=== PATIENT | male | born 1950 | race Caucasian/White ===

== ENCOUNTER → 2017-12-20 07:00 | Outpatient (CLI) | payer MEDICARE, SELFPAY ==
[2017-12-20 10:45] LABS: AST(SGOT) 26 U/L (15-37); Alanine Aminotransfer ALT/SGPT 24 U/L (16-61); Albumin, Serum 3.9 g/dL (3.2-5.0); Alkaline Phosphatase 83 U/L (45-117); Bilirubin, Direct 0.13 mg/dL (0.00-0.30); Cholesterol 146 mg/dL (200); Globulin 3.4 g/dL (2.2-4.2); High Density Lipoprotein 46 mg/dL; Protein, Total 7.3 g/dL (6.4-8.2); Triglycerides 87 mg/dL; Very Low Density Lipoprotein 17 mg/dL (5-40)
== END ==
PROVIDERS: Family Provider Nurse Practitioner; PCP Nurse Practitioner; Visit Provider Internal Medicine Cardiovascular Disease
DX: E78.5 Hyperlipidemia, unspecified (principal); Z79.899 Other long term (current) drug therapy
CPT/HCPCS: 36415; 80061; 80076

== ENCOUNTER → 2018-11-03 08:00 | Outpatient (CLI) | payer MEDICARE, SELFPAY ==
[2018-01-05 12:58] VITALS: BMI 28.8
[2018-11-03 10:26] LABS: AST(SGOT) 30 U/L (15-37); Alanine Aminotransfer ALT/SGPT 25 U/L (16-61); Albumin, Serum 3.8 g/dL (3.2-5.0); Alkaline Phosphatase 90 U/L (45-117); Bilirubin, Direct 0.16 mg/dL (0.00-0.30); Cholesterol 142 mg/dL (200); Globulin 3.4 g/dL (2.2-4.2); High Density Lipoprotein 48 mg/dL; Protein, Total 7.2 g/dL (6.4-8.2); Triglycerides 81 mg/dL; Very Low Density Lipoprotein 16 mg/dL (5-40)
== END ==
PROVIDERS: Family Provider Nurse Practitioner; PCP Nurse Practitioner; Referring Provider Internal Medicine Cardiovascular Disease; Visit Provider Internal Medicine Cardiovascular Disease
DX: E78.5 Hyperlipidemia, unspecified (principal)
CPT/HCPCS: 36415; 80061; 80076

== ENCOUNTER → 2019-02-23 14:41 | Outpatient (CLI) | payer MEDICARE, SELFPAY ==
[2019-01-26 08:34] VITALS: BMI 29.1
--- NOTE | 2019-02-23 14:45 | ECHOCS_ITS ---
Reason For Study: MVP Procedure This was a 2D Doppler, Color Flow transthoracic echocardiogram. The study was technically difficult. Contrast injection was performed. Exam performed in department. Left Ventricle Normal LV size. Left ventricular systolic function is normal. The estimated ejection fraction is 60 %. Diastolic function is indeterminate. No regional wall motion abnormalities noted. Right Ventricle Normal RV size. Normal systolic function. Atria The left atrium is mildly enlarged. Normal right atrium. No doppler evidence for ASD. Mitral Valve There is no mitral annular calcification. Mild to moderate mitral valve prolapse. Moderate (2+) mitral valve insufficiency. Tricuspid Valve Normal tricuspid valve. Mild tricuspid valve insufficiency. Right ventricular systolic pressure estimated to be 23 mmHg. Aortic Valve Trisinus/trileaflet aortic valve. Normal aortic valve. Pulmonic Valve The pulmonic valve is not well visualized. Great Vessels Borderline to mildly dilated aortic root. Pericardium/Pleural No pericardial effusion. Medication 22 gauge I.V. with prn adaptor inserted into right arm. Diluted definity 4ml given slow IV push to enhance endocardial definition. MMode/2D Measurements & Calculations LVIDd: 4.3 cm IVSd: 1.0 cm Ao root diam: 3.8 cm LVIDs: 2.7 cm LVPWd: 0.85 cm RVDd: 3.6 cm FS: 37.0 % LAV(MOD-bp): 84.1 ml EDV(MOD-sp4): 150.7 ml EDV(MOD-sp2): 96.8 ml LAV(MOD-bp) Indexed: 37.2 ml/m2 ESV(MOD-sp4): 50.0 ml EF(MOD-sp2): 54.1 % LAV(MOD-sp2): 108.6 ml EF(MOD-sp4): 66.8 % LAV(MOD-sp4): 65.3 ml SV(MOD-sp4): 100.6 ml SV(MOD-sp2): 52.3 ml LA A4 area: 21.7 cm2 LA dimension(2D): 4.3 cm RA A4 area: 16.3 cm2 Time Measurements MV dec time: 0.24 sec Doppler Measurements & Calculations MV E max tomi: 44.2 cm/sec Lat Peak E' Tomi: 8.3 cm/sec Med Peak E' Tomi: 4.7 cm/sec MV A max tomi: 43.3 cm/sec E/E' lat: 5.4 E/E' med: 9.4 MV E/A: 1.0 Ao V2 max: 99.3 cm/sec LV V1 max: 82.9 cm/sec TR max tomi: 223.5 cm/sec Ao max P.9 mmHg LV V1 max P.8 mmHg TR max P.1 mmHg Interpretation Summary The study was technically difficult. Contrast injection was performed. Left ventricular systolic function is normal. The estimated ejection fraction is 60 %. The left atrium is mildly enlarged. Mild to moderate mitral valve prolapse. Moderate (2+) mitral valve insufficiency. Mild tricuspid valve insufficiency. Borderline to mildly dilated aortic root. Right ventricular systolic pressure estimated to be 23 mmHg. Diastolic function is indeterminate. Ordering Physician: Rolan Baez Referring Physician: ADRIANNA LA Performed By: Shelbie Crocker, SRAVAN, RVT
== END ==
PROVIDERS: Family Provider Nurse Practitioner; PCP Nurse Practitioner; Referring Provider Internal Medicine Cardiovascular Disease; Visit Provider Internal Medicine Cardiovascular Disease
DX: I34.0 Nonrheumatic mitral (valve) insufficiency (principal)
CPT/HCPCS: 93306; Q9957; A4216; C8929

== ENCOUNTER → 2020-04-14 08:10 | Outpatient (CLI) | payer MEDICARE, SELFPAY ==
[2020-03-21 15:26] VITALS: BMI 28.6
[2020-04-14 10:10] LABS: AST(SGOT) 25 U/L (15-37); Alanine Aminotransfer ALT/SGPT 24 U/L (16-61); Albumin, Serum 3.9 g/dL (3.2-5.0); Alkaline Phosphatase 89 U/L (45-117); Bilirubin, Direct 0.14 mg/dL (0.00-0.30); Cholesterol 167 mg/dL (200); Globulin 3.6 g/dL (2.2-4.2); High Density Lipoprotein 51 mg/dL; Protein, Total 7.5 g/dL (6.4-8.2); Triglycerides 93 mg/dL; Very Low Density Lipoprotein 19 mg/dL (5-40)
[2020-04-14 10:16] LABS: PSA,Total - Annual Screen 1.35 ng/mL (0.00-4.00)
== END ==
PROVIDERS: Internal Medicine Cardiovascular Disease; PCP Nurse Practitioner; Referring Provider Nurse Practitioner; Visit Provider Nurse Practitioner
DX: Z12.5 Encounter for screening for malignant neoplasm of prostate (principal); E78.00 Pure hypercholesterolemia, unspecified; E78.5 Hyperlipidemia, unspecified
CPT/HCPCS: 36415; 80061; 80076; 84153; G0103

== ENCOUNTER → 2021-03-23 08:09 | Outpatient (CLI) | payer MEDICARE, SELFPAY ==
[2021-03-20 11:08] VITALS: BMI 28.6
[2021-03-23 10:51] LABS: AST(SGOT) 28 U/L (15-37); Alanine Aminotransfer ALT/SGPT 28 U/L (16-61); Albumin, Serum 3.8 g/dL (3.2-5.0); Alkaline Phosphatase 95 U/L (45-117); Bilirubin, Direct 0.13 mg/dL (0.00-0.30); Cholesterol 164 mg/dL (200); Globulin 3.4 g/dL (2.2-4.2); High Density Lipoprotein 52 mg/dL; Protein, Total 7.2 g/dL (6.4-8.2); Triglycerides 101 mg/dL; Very Low Density Lipoprotein 20 mg/dL (5-40)
== END ==
PROVIDERS: PCP Nurse Practitioner; Referring Provider Internal Medicine Cardiovascular Disease; Visit Provider Internal Medicine Cardiovascular Disease
DX: E78.00 Pure hypercholesterolemia, unspecified (principal)
CPT/HCPCS: 36415; 80061; 80076

== ENCOUNTER → 2022-04-05 | Outpatient (CLI) | payer MEDICARE, SELFPAY ==
--- NOTE | 2022-04-05 12:41 | ECHOCS_ITS ---
Reason For Study: Ao Root Dilatation Procedure This was a 2D Doppler, Color Flow transthoracic echocardiogram. The study was technically difficult. Contrast injection was performed. Exam performed in department. Left Ventricle Normal LV size. Left ventricular systolic function is normal. The estimated ejection fraction is 65 %. No evidence for diastolic dysfunction. No regional wall motion abnormalities noted. Right Ventricle Normal RV size. Normal systolic function. Atria The left atrium is mildly enlarged. Normal right atrium. No doppler evidence for ASD. Mitral Valve There is no mitral annular calcification. Mild to moderate mitral valve prolapse. Moderate (2+) mitral valve insufficiency. Tricuspid Valve Normal tricuspid valve. Mild tricuspid valve insufficiency. Right ventricular systolic pressure estimated to be 26 mmHg. Aortic Valve Trisinus/trileaflet aortic valve. Mild focal aortic valve calcification. Trivial aortic valve insufficiency. Pulmonic Valve The pulmonic valve is not well visualized. Trivial pulmonic valve insufficiency. Great Vessels Normal sized aortic root. Pericardium/Pleural No pericardial effusion. Medication Diluted definity 3ml given slow IV push to enhance endocardial definition. MMode/2D Measurements & Calculations LVIDd: 5.5 cm IVSd: 1.1 cm Ao root diam: 3.6 cm LVIDs: 4.0 cm LVPWd: 0.92 cm RVDd: 3.8 cm FS: 28.0 % LAV(MOD-bp): 55.1 ml LVAd ap4: 35.1 cm2 SV(MOD-sp4): 82.0 ml LAV(MOD-bp) Indexed: 24.6 ml/m2 LVLd ap4: 8.2 cm LAV(MOD-sp2): 59.0 ml EDV(MOD-sp4): 121.4 ml LAV(MOD-sp4): 46.3 ml EDV(sp4-el): 127.9 ml LVAs ap4: 17.1 cm2 LVLs ap4: 6.2 cm ESV(MOD-sp4): 39.5 ml ESV(sp4-el): 40.2 ml EF(MOD-sp4): 67.5 % EF(sp4-el): 68.6 % SV(sp4-el): 87.8 ml LA A4 area: 18.0 cm2 LA dimension(2D): 4.1 cm RA A4 area: 12.1 cm2 Doppler Measurements & Calculations MV E max tomi: 40.8 cm/sec Lat Peak E' Tomi: 7.9 cm/sec Med Peak E' Tomi: 7.1 cm/sec MV A max tomi: 67.9 cm/sec E/E' lat: 5.2 E/E' med: 5.7 MV E/A: 0.60 Ao V2 max: 91.1 cm/sec LV V1 max: 79.4 cm/sec PA V2 max: 75.0 cm/sec Ao max P.3 mmHg LV V1 max P.5 mmHg Ao V2 mean: 65.1 cm/sec Ao mean P.9 mmHg Ao V2 VTI: 19.6 cm TR max tomi: 239.9 cm/sec TR max P.0 mmHg ECHO/Echo Complete W/ Contrast Interpretation Summary The study was technically difficult. Contrast injection was performed. Left ventricular systolic function is normal. The estimated ejection fraction is 65 %. The left atrium is mildly enlarged. Mild to moderate mitral valve prolapse. Moderate (2+) mitral valve insufficiency. Mild tricuspid valve insufficiency. Mild focal aortic valve calcification. Trivial aortic valve insufficiency. Trivial pulmonic valve insufficiency. Right ventricular systolic pressure estimated to be 26 mmHg. No evidence for diastolic dysfunction. Ordering Physician: Rolan Baez Referring Physician: Rolan Baez Performed By: Kathy Mobley, SRAVAN, RVT
[2022-04-05 15:00] LABS: AST(SGOT) 25 U/L (15-37); Alanine Aminotransfer ALT/SGPT 27 U/L (16-61); Albumin, Serum 3.8 g/dL (3.2-5.0); Alkaline Phosphatase 91 U/L (45-117); Bilirubin, Direct 0.15 mg/dL (0.00-0.30); Cholesterol 155 mg/dL (200); Globulin 3.3 g/dL (2.2-4.2); High Density Lipoprotein 47 mg/dL; Protein, Total 7.1 g/dL (6.4-8.2); Triglycerides 107 mg/dL; Very Low Density Lipoprotein 21 mg/dL (5-40)
== END | disposition home or self-care (01) ==
LOC: CVS 12:40
PROVIDERS: Referring Provider Internal Medicine Cardiovascular Disease; Visit Provider Internal Medicine Cardiovascular Disease
DX: I25.10 Atherosclerotic heart disease of native coronary artery without angina pectoris (principal); I43 Cardiomyopathy in diseases classified elsewhere; I77.810 Thoracic aortic ectasia; I47.2 Ventricular tachycardia; I47.1 Supraventricular tachycardia; I34.0 Nonrheumatic mitral (valve) insufficiency; I34.1 Nonrheumatic mitral (valve) prolapse; E78.00 Pure hypercholesterolemia, unspecified; Q21.1 Atrial septal defect
CPT/HCPCS: 36415; 80061; 80076; 93306; Q9957; A4216; C8929

== ENCOUNTER → 2023-04-07 | Outpatient (CLI) | payer MEDICARE, SELFPAY ==
[2023-04-07 12:42] LABS: AST(SGOT) 23 U/L (15-37); Alanine Aminotransfer ALT/SGPT 24 U/L (16-61); Albumin, Serum 3.6 g/dL (3.2-5.0); Alkaline Phosphatase 86 U/L (45-117); Bilirubin, Direct 0.14 mg/dL (0.00-0.30); Cholesterol 142 mg/dL (200); Globulin 3.4 g/dL (2.2-4.2); High Density Lipoprotein 46 mg/dL; Triglycerides 154 mg/dL; Very Low Density Lipoprotein 31 mg/dL (5-40)
== END | disposition home or self-care (01) ==
PROVIDERS: PCP Nurse Practitioner Family; Visit Provider Physician Assistant Medical
DX: I25.10 Atherosclerotic heart disease of native coronary artery without angina pectoris (principal); E78.00 Pure hypercholesterolemia, unspecified
CPT/HCPCS: 36415; 80061; 80076

== ENCOUNTER → 2023-04-28 | Outpatient (CLI) | payer MEDICARE, SELFPAY ==
--- NOTE | 2023-04-28 13:38 | ECHOCS_ITS ---
Reason For Study: ASHD Procedure This was a 2D Doppler, Color Flow transthoracic echocardiogram. The study was technically difficult. Contrast injection was performed. Exam performed in department. Left Ventricle Normal LV size. Left ventricular systolic function is normal. The estimated ejection fraction is 60 %. No regional wall motion abnormalities noted. Right Ventricle Normal RV size. Normal systolic function. Atria Normal left atrium. Normal right atrium. Mitral Valve Mild mitral valve prolapse. Mild (1+) anteriorly directed mitral valve insufficiency. Tricuspid Valve Normal tricuspid valve. Aortic Valve Normal aortic valve. Trisinus/trileaflet aortic valve. Pulmonic Valve Normal pulmonic valve. Great Vessels Mildly dilated aortic root. The pulmonary artery is normal size. Normal inferior vena cava. Pericardium/Pleural No pericardial effusion. Medication 22 gauge I.V. with prn adaptor inserted into right arm. Diluted definity 2.5ml given slow IV push to enhance endocardial definition. MMode/2D Measurements & Calculations LVIDd: 5.1 cm IVSd: 1.1 cm Ao root diam: 4.1 cm LVIDs: 3.9 cm LVPWd: 1.3 cm LA dimension: 4.1 cm RVDd: 4.2 cm FS: 22.5 % LAV(MOD-bp): 67.7 ml LA A4 area: 19.8 cm2 RA A4 area: 18.2 cm2 LAV(MOD-bp) Indexed: 30.5 ml/m2 LAV(MOD-sp2): 82.0 ml LAV(MOD-sp4): 54.8 ml TAPSE: 1.8 cm Time Measurements MV dec time: 0.39 sec Doppler Measurements & Calculations MV E max tomi: 41.8 cm/sec Lat Peak E' Tomi: 7.3 cm/sec Med Peak E' Tomi: 6.7 cm/sec MV A max tomi: 62.3 cm/sec E/E' lat: 5.7 E/E' med: 6.2 MV E/A: 0.67 MV V2 max: 60.7 cm/sec MV P1/2t max tomi: 48.5 cm/sec Ao V2 max: 105.1 cm/sec MV max P.5 mmHg MV P1/2t: 116.4 msec Ao max P.4 mmHg MV V2 mean: 30.4 cm/sec MV dec slope: 122.0 cm/sec2 Ao V2 mean: 69.8 cm/sec MV mean P.44 mmHg MVA(P1/2t): 1.9 cm2 Ao mean P.3 mmHg MV V2 VTI: 18.5 cm Ao V2 VTI: 23.9 cm AV (velocity ratio): 0.86 LV V1 max: 88.1 cm/sec MR max tomi: 507.0 cm/sec PA V2 max: 77.5 cm/sec LV V1 max P.1 mmHg MR max P.8 mmHg LV V1 mean P.6 mmHg LV V1 mean: 57.4 cm/sec LV V1 VTI: 20.5 cm ECHO/Echo Complete W/ Contrast Interpretation Summary Normal LV size. Left ventricular systolic function is normal. The estimated ejection fraction is 60 %. Mildly dilated aortic root. Mild mitral valve prolapse. Mild (1+) anteriorly directed mitral valve insufficiency. Ordering Physician: Laurie Valdivia Referring Physician: Laurie Valdivia Performed By: Troy Coyne RCS
== END | disposition home or self-care (01) ==
LOC: CVS 13:37
PROVIDERS: PCP Nurse Practitioner Family; Referring Provider Physician Assistant Medical; Visit Provider Physician Assistant Medical
DX: I25.10 Atherosclerotic heart disease of native coronary artery without angina pectoris (principal)
CPT/HCPCS: 93306; Q9957; A4216; C8929

== ENCOUNTER → 2024-05-31 | Outpatient (CLI) | payer MEDICARE, SELFPAY ==
[2024-05-31 11:54] LABS: AST(SGOT) 27 U/L (15-37); Alanine Aminotransfer ALT/SGPT 25 U/L (16-61); Albumin, Serum 3.8 g/dL (3.2-5.0); Alkaline Phosphatase 97 U/L (45-117); Bilirubin, Direct 0.16 mg/dL (0.00-0.30); Cholesterol 150 mg/dL (200); Globulin 3.5 g/dL (2.2-4.2); High Density Lipoprotein 49 mg/dL; Protein, Total 7.3 g/dL (6.4-8.2); Triglycerides 94 mg/dL; Very Low Density Lipoprotein 19 mg/dL (5-40)
== END | disposition home or self-care (01) ==
PROVIDERS: PCP Nurse Practitioner Family; Referring Provider Internal Medicine Cardiovascular Disease; Visit Provider Internal Medicine Cardiovascular Disease
DX: E78.00 Pure hypercholesterolemia, unspecified (principal)
CPT/HCPCS: 36415; 80061; 80076

== ENCOUNTER → 2024-11-28 | Outpatient (CLI) | payer MEDICARE, SELFPAY ==
[2024-11-28 11:14] LABS: AST(SGOT) 40 U/L (<=37); Alanine Aminotransfer ALT/SGPT 16 U/L (<=46); Albumin, Serum 3.9 g/dL (3.4-4.8); Alkaline Phosphatase 93 U/L (40-129); Bilirubin, Direct < 0.08 mg/dL (0.00-0.30); Cholesterol 148 mg/dL (<=200); Globulin 2.9 g/dL (2.2-4.2); High Density Lipoprotein 48 mg/dL; Low Density Lipoprotein Calc. 76 mg/dL; Protein, Total 6.8 g/dL (5.9-8.4); Total Bilirubin 0.55 mg/dL (0.00-1.30); Triglycerides 121 mg/dL; Very Low Density Lipoprotein 24 mg/dL (5-40); cholesterol:hdl ratio screen 3.06
== END | disposition home or self-care (01) ==
PROVIDERS: PCP Nurse Practitioner Family; Referring Provider Nurse Practitioner Family; Visit Provider Nurse Practitioner Family
DX: E78.00 Pure hypercholesterolemia, unspecified (principal)
CPT/HCPCS: 36415; 80061; 80076

== ENCOUNTER → 2025-05-20 | Outpatient (CLI) | payer MEDICARE, SELFPAY ==
--- OUTSIDE RECORDS SUMMARY | 2025-05-20 09:26 | XMS RPT_ITS | CCD ---
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 Salazar Adams Unavailable Dr. Marquis Mercedes Unavailable Casi Gordon MA Unavailable Unavailable Carmen Louis CNP Unavailable Unavailable Unavailable Skip GARCIA, PA Laurie Lane Attending Provider HAMIDA Louis Primary Care Provider HAMIDA Louis Referring Provider Dr. Robin Hagen Attending Provider Carmen Simons Primary Care Provider Itz GONZALEZ-Makayla Brock Attending Provider Makayla Hernandez Referring Provider Carmen Louis Primary Care Unavailable Robin Hagen Attending Unavailable Robin Hagen Referring Unavailable Makayla Mobley NP Referring Unavailable Carmen Louis Primary Care Unavailable Makayla Mobley NP Attending Unavailable Carmen Louis Primary Care Unavailable Carmen Louis Referring Unavailable Robin Hagen Attending Unavailable Medications Current Medications Medication Drug Class(es) Dates Sig (Normalized) Sig (Original) aspirin 81 mg delayed release oral tablet (16 sources) Nonsteroidal Anti-inflammatory Drug Start: 01-02-2018 Aspirin (Adult Low Dose Aspirin) 81 mg tablet,delayed release (DR/EC) Active 81 mg PO daily January 02, 2018 12:00am Start: 12-09-2010 take 1 tablet by natalia th once daily ASPIRIN 81 MG TABS One tablet by mouth daily ASPIRIN [id number] Lisa Wei Start: 12-09-2010 take 1 tablet by natalia th once daily ASPIRIN EC 81 MG TBEC One tablet by mouth daily ASPIRIN [id number] Jose Amark Leroy Tamiaparesh atorvastatin 10 mg oral tablet (20 sources) HMG-CoA Reductase Inhibitor Start: 12-09-2010 End: 10-27-2023 take 1 tablet by mouth once daily Atorvastatin 10 mg tablet Active 10 mg PO daily October 27, 2023 9:46am 24 hr metoprolol succinate 25 mg extended release oral tablet (20 sources) beta-Adrenergic Piyush Start: 12-09-2010 End: 10-27-2023 take 1 tablet by mouth once daily Metoprolol Succinate 25 mg tablet extended release 24 hr Active 25 mg PO daily October 27, 2023 9:46am ramipril 10 mg oral capsule (20 sources) Angiotensin Converting Enzyme Inhibitor Start: 12-09-2010 End: 10-27-2023 take 1 capsule by mouth once daily Ramipril 10 mg capsule Active 10 mg PO daily October 27, 2023 9:46am Completed/Discontinued Medications Medication Drug Class(es) Dates Sig (Normalized) Sig (Original) azithromycin 250 mg oral tablet (2 sources) Macrolide Antimicrobial Start: 08-23-2019 End: 02-04-2020 Zithromax Z-Sai 250 MG Oral Tablet 1 (one) Tablet uad for 0 days Quantity: 1 {Package} Refills: 0 Ordered: 04-Feb-2020 Anurag Marks LPN Start : 23-Aug-2019 End : 04-Feb-2020 Inactive docusate sodium 50 mg / sennosides, correction 8.6 mg oral tablet (5 sources) Start: 07-29-2014 take 8.6-50 mg by mouth once daily STOOL SOFTENER & LAXATIVE, 8.6-50MG (Oral Tablet) 1 (one) Tablet daily for 30 days Quantity: 30 {Tablet} Refills: 0 Ordered: 29-Jul-2014 Joyce Abdi DO Start : 29-Jul-2014 Active MULTIPLE VITAMIN (4 sources) Start: 12-09-2010 take 1 tablet by mouth once daily MULTIVITAMINS TABS One tablet by mouth daily MULTIPLE VITAMIN [id number] Lisa Wei Multivitamin preparation (5 sources) take 1 tablet by mouth once daily MULTIVITAMIN (PO Tab) 1 (one) daily Active oseltamivir 75 mg oral capsule (5 sources) Neuraminidase Inhibitor Start: 09-05-2017 End: 09-10-2017 take 1 capsule by mouth twice daily Oseltamivir Phosphate 75 MG Oral Capsule 1 (one) Capsule PO BID for 5 days Quantity: 10 {Capsule} Refills: 0 Ordered: 05-Sep-2017 Henrietta Arroyo Start : 05-Sep-2017 End : 10-Sep-2017 Inactive predniSONE 20 mg oral tablet (2 sources) Start: 08-23-2019 End: 02-04-2020 take 1 tablet by mouth at mealtime predniSONE 20 MG Oral Tablet 1 (one) Tablet in am with food for 0 days Quantity: 7 {Tablet} Refills: 0 Ordered: 04-Feb-2020 Anurag Marks LPN Start : 23-Aug-2019 End : 04-Feb-2020 Inactive Problems Active Problems Problem Classification Problem Date Documented Da te Episodic/Chronic Aortic; peripheral; and visceral artery aneurysms (5 sources) Aortic root dilatation; Translations: [Thoracic aortic ectasia] 01-05-2018 Chronic Cancer of head and neck (6 sources) Malignant neoplasm of head, face and neck; Translations: [Malignant tumor of face] 01-29-2019 Chronic Cardiac and circulatory congenital anomalies (10 sources) Unspecified congenital anomaly of heart; Translations: [Mitral Valve Prolapse] 01-29-2019 Chronic Cardiac dysrhythmias (20 sources) Ventricular tachycardia; Translations: [Supraventricular tachycardia] Onset: 12-09-2010 12-09-2010 Chronic Chronic obstructive pulmonary disease and bronchiectasis (4 sources) Bronchitis; Translations: [Bronchitis] 02-04-2020 Episodic Coronary atherosclerosis and other heart disease (20 sources) Coronary arteriosclerosis; Translations: [Atherosclerotic heart disease of [place] coronary artery without angina pectoris] Onset: 12-09-2010 12-09-2010 Chronic Comment on above: takes baby ASA Disorders of lipid metabolism (20 sources) Hyperlipidemia; Translations: [Other hyperlipidemia] Onset: 12-09-2010 12-09-2010 Chronic Comment on above: chronic stable-elian nue present regimen, on lipitor 10 stable last lipid December 2017, adriel Baez yearly Fever of unknown origin (2 sources) Fever; Translations: [Fever] 06-04-2022 Episodic Heart valve disorders (20 sources) Mitral valve disorder; Translations: [Mitral valve prolapse] Onset: 12-09-2010 12-09-2010 Chronic Comment on above: Adriel Baez contr olled on toprol and altace recent echo Immunizations and screening for infectious disease (6 sources) Patient encounter status; Translations: [Encounter for hepatitis C virus screening test for high risk patient] 06-04-2022 Episodic Influenza (6 sources) Influenza due to Influenza virus, type B; Translations: [Type B influenza] 01-29-2019 Episodic Other aftercare (1 source) Long-term current use of drug therapy; Translations: [Other [place] (current) drug therapy] 01-02-2018 Episodic Other and unspecified benign neoplasm (8 sources) Polyp of colon; Translations: [Colon Polyp] 01-29-2019 Episodic Comment on above: colonoscopy due Sep 2018 Other gastrointestinal disorders (12 sources) Constipation; Translations: [Other constipation] Resolved: 04-10-2018 11-12-2019 Episodic Comment on above: better Other gastrointestinal disorders (8 sources) Atonic constipation; Translations: [Other constipation] Resolved: 04-10-2018 04-10-2018 Episodic Comment on above: better Other infections; including parasitic (6 sources) H/O: infectious disease; Translations: [History of ESBL E. coli infection] 01-29-2019 Episodic Comment on above: with home IV Other non-epithelial cancer of skin (5 sources) Malignant neoplasm of skin; Translations: [Skin cancer] 01-29-2019 Episodic Other nutritional; endocrine; and metabolic disorders (12 sources) Body mass index 30+ - obesity; Translations: [BMI 30.0-30.9,adult] Resolved: 09-10-2020 01-29-2019 Chronic Other nutritional; endocrine; and metabolic disorders (2 sources) Overweight in adulthood with body mass index of 25 or more but less than 30; Translations: [BMI 29.0-29.9,adult] Resolved: 09-10-2020 09-10-2020 Episodic Nola-; endo-; and myocarditis; cardiomyopathy (20 sources) Dilated cardiomyopathy; Translations: [Cardiomyopathy in diseases classified elsewhere] Onset: 12-09-2010 12-09-2010 Chronic Comment on above: Stable sees Moodispa w stable on altace and lipitor Residual codes; unclassified (2 sources) Vaccination required; Translations: [Need for vaccination against Streptococcus pneumoniae] 01-29-2019 Episodic Residual codes; unclassified (6 sources) Influenza-like symptoms; Translations: [Flu-like symptoms] Resolved: 04-10-2018 04-10-2018 Episodic Residual codes; unclassified (3 sources) Increased body mass index; Translations: [BMI 29.0-29.9,adult] 01-29-2019 Episodic Residual codes; unclassified (8 sources) Non-smoker; Translations: [Nonsmoker] 06-04-2022 Episodic Unclassified (14 sources) Abnormal result of cardiovascular function study, unspecified; Translations: [Screening status] Onset: 12-09-2010 12-09-2010 Episodic Unclassified (4 sources) Long-term drug therapy; Translations: [Other [place] [facility] (current) drug therapy] Onset: 12-09-2010 12-09-2010 Unclassified (12 sources) Colon Polyp Unclassified (14 sources) Patient encounter status; Translations: [Annual Medicare Physical WITH abnormal findings (Renamed from Encounter for general adult medical examination with abnormal findings)] 04-10-2018 Unclassified (20 sources) Unclassified (20 sources) Screening for prostate cancer; Translations: [Screening status] 01-29-2019 Unclassified (20 sources) Non-smoker; Translations: [Nonsmoker] 01-29-2019 Unclassified (4 sources) Cancer, face Unclassified (9 sources) BMI 30.0-30.9,adult Unclassified (4 sources) History of ESBL E. coli infection Viral infection (2 sources) Disease caused by 2019-nCoV; Translations: [COVID] 06-04-2022 Episodic Comment on above: on day #3. Past or Other Problems Problem Classification Problem Date Documented Date Episodic/Chronic Chronic obstructive pulmonary disease and bronchiectasis (3 sources) Chronic obstructive pulmonary disease and bronchiectasis Conditions associated with dizziness or vertigo (5 sources) Vertigo; Translations: [Vertigo] Resolved: 04-10-2018 04-10-2018 Episodic Influenza (4 sources) Influenza Open wounds of extremities (4 sources) Unspecified open wound of unspecified forearm, initial encounter; Translations: [Unspecified open wound of unspecified forearm, initial encounter] Onset: 10-12-2011 10-12-2011 Episodic Other ear and sense organ disorders (5 sources) Tinnitus; Translations: [Tinnitus] Resolved: 04-10-2018 04-10-2018 Episodic Other lower respiratory disease (9 sources) Dyspnea; Translations: [Dyspnea] Onset: 12-09-2010 Resolved: 04-10-2018 12-09-2010 Episodic Other nutritional; endocrine; and metabolic disorders (1 source) Body mass index 25-29 - overweight; Translations: [BMI 29.0-29.9,adult] Resolved: 09-10-2020 09-10-2020 Chronic Pneumonia (except that caused by tuberculosis or sexually transmitted disease) (4 sources) Pneumonia (except that caused by tuberculosis or sexually transmitted disease) Residual codes; unclassified (2 sources) Requires vaccination; Translations: [Need for vaccination against Streptococcus pneumoniae] 01-29-2019 Unclassified (8 sources) Body mass index (BMI) 27.0-27.9, adult; Translations: [Body mass index (BMI) 28.0-28.9, adult] Onset: 06-28-2014 06-30-2015 Episodic Unclassified (4 sources) Annual Medicare Physical (V70.0) Unclassified (4 sources) Flu-like symptoms Unclassified (4 sources) BMI 29.0-29.9,adult Unclassified (5 sources) Encounter for Medicare annual wellness exam Unclassified (4 sources) SCREENING FOR CANCER OF THE PROSTATE (V76.44) Unclassified (1 source) Encounter for hepatitis C virus screening test for high risk patient Viral infection (1 source) Disease caused by Results Test Name Value Interpretation Reference Range Facility Bilirubin, totalOrdered By: Makayla Mobley on 11-28-2024 Bilirubin [Mass/Vol] 0.55 mg/dL 0.00-1.[address] [facility] Bilirubin.direct [Mass/Vol]O rdered By: Makayla Mobley on 11-28-2024 Direct Bilirubin < 0.08 mg/dL 0.00-0.30 [facility] Comment on above: Hemolysis present, R esults could be affected. Calculated very low density lipoprotein (VLDL) cholesterol measurementOrdered By: Makayla Mobley on 11-28-2024 VLDL Cholesterol 24 mg/dL 5-40 [facility] LDL calc ser/plasOrdered By: Makayla Mobley on 11-28-2024 LDL Cholesterol, Calculated 76 mg/dL [facility] Comment on above: Qyyttoynjt=874-698 m g/dL & Higher Pzmh=902 mg/dL or greater Laboratory - Chemistry and C hemistry - challengeOrdered By: Makayla Mobley on 11-28-2024 AST [Catalytic activity/Vol] 40 U/L High <38 [facility] Comment on above: Hemolysis present, R esults could be affected. Lipid Profileon 11-28-2024 CHOL:HDL 3.06 Normal [facility] Comment on above: Performed By: #### L 500.3400, L500.4100 #### [facility] [address] [place], [place], [id number] (003) Cholesterol [Mass/Vol] 148 mg/dL Normal <=200 [facility] Comment on above: Result Comment: Chol esterol level, Desirable <200 mg/dL Borderline high cholesterol 200-239 mg/dL High cholesterol >=240 mg/dL Recommendations of the NCEP Adult Treatment Panel for the following risk-cutoff thresholds for the [place] population. Performed By: #### L 500.3400, L500.4100 #### [facility] [address] [place], [place], [id number] Cholesterol in HDL [Mass/Vol] 48 mg/dL Normal [facility] Comment on above: Result Comment: Prema onal Cholesterol Education Program (NCEP) guidelines: <40 mg/dL: Low HDL-cholesterol (major risk factor for CHD) >= 60 mg/dL: High HDL-cholesterol (negative risk factor for CHD) HDL-cholesterol is affected by a number of factors, e.g. smoking, exercise, hormones, sex and age. Performed By: #### L 500.3400, L500.4100 #### [facility] [address] [place], [address] Cholesterol in LDL [Mass/Vol] 76 mg/dL Normal [facility] Comment on above: Result Comment: Bord vtwcyx=187-164 mg/dL Higher Uixo=493 mg/dL or greater Performed By: #### L 500.3400, L500.4100 #### [facility] [address] [place], [address] Cholesterol in VLDL [Mass/Vol] 24 mg/dL Normal 5-40 [facility] Comment on above: Performed By: #### L 500.3400, L500.4100 #### [facility] [address] [place], [address] Triglyceride [Mass/Vol] 121 mg/dL Normal [facility] Comment on above: Result Comment: The drugs N-Acetylcysteine and Metamizole may falsely depress this assay. Normal range: <150 mg/dL Borderline High: 150-199 mg/dL High: 200-499 mg/dL Very High: >500 mg/dL Performed By: #### L 500.3400, L500.4100 #### [facility] [address] [place], [address] Liver Profileon 11-28-2024 Albumin [Mass/Vol] 3.9 g/dL Normal 3.4-4.8 [facility] Comment on above: Performed By: #### L 500.3400, L500.4100 #### [facility] [address] [place], [address] ALK PHOS 93 U/L Normal 40-129 [facility] Comment on above: Performed By: #### L 500.3400, L500.4100 #### [facility] [address] [place], [address] ALT [Catalytic activity/Vol] 16 U/L Normal <=46 [facility] Comment on above: Result Comment: Hemo lysis present, Results??could be affected. ?? Performed By: #### L 500.3400, L500.4100 #### [facility] [address] [place], [address] AST [Catalytic activity/Vol] 40 U/L High <=37 [facility] Comment on above: Result Comment: Hemo lysis present, Results??could be affected. ?? Performed By: #### L 500.3400, L500.4100 #### [facility] [address] [place], [address] Bilirubin [Mass/Vol] 0.55 mg/dL Normal 0.00-1.30 [facility] Comment on above: Performed By: #### L 500.3400, L500.4100 #### [facility] [address] [place], [address] D BILI < 0.08 Normal 0.00-0.30 [facility] Comment on above: Result Comment: Hemo lysis present, Results??could be affected. ?? Performed By: #### L 500.3400, L500.4100 #### [facility] [address] [place], [address] T PROT 6.8 g/dL Normal 5.9-8.4 [facility] Comment on above: Performed By: #### L 500.3400, L500.4100 #### [facility] [address] [place], [address] Screening total cholesterol/ high density lipoprotein (HDL) cholesterol ratioOrdered By: Makayla Mobley on 11-28-2024 Cholesterol.total/Cho lesterol in HDL [Mass ratio] 3.06 {ratio} [facility] Serum globulin measurementOr dered By: Makayla Mobley on 11-28-2024 Globulin (S) [Mass/Vol] 2.9 g/dL 2.2-4.2 [facility] Serum or plasma alanine ford otransferase (ALT) measurementOrdered By: Makayla Mobley on 11-28-2024 ALT [Catalytic activity/Vol] 16 U/L <47 [facility] Comment on above: Hemolysis present, R esults could be affected. Serum or plasma albumin caryl urement (mass/volume)Ordered By: Makayla Mobley on 11-28-2024 Albumin [Mass/Vol] 3.9 g/dL 3.4-4.8 [facility] Serum or plasma alkaline rose sphatase measurementOrdered By: Makayla Mobley on 11-28-2024 ALP [Catalytic activity/Vol] 93 U/L 40-129 [facility] Serum or plasma cholesterol in HDL measurement (mass/volume)Ordered By: Makayla Mobley on 11-28-2024 Cholesterol in HDL [Mass/Vol] 48 mg/dL >40 [facility] Comment on above: National Cholesterol Education Program (NCEP) guidelines:<40 mg/dL: Low HDL-cholesterol (major risk factor for CHD)>= 60 mg/dL: High HDL-cholesterol (negative risk factor for CHD)HDL-cholesterol is affected by a number of factors, e.g. smoking, exercise, hormones, sex and age. Serum or plasma cholesterol measurement (mass/volume)Ordered By: Makayla Mobley on 11-28-2024 Cholesterol [Mass/Vol] 148 mg/dL <201 [facility] Comment on above: Cholesterol level, D esirable <200 mg/dLBorderline high cholesterol 200-239 mg/dLHigh cholesterol >=240 mg/dLRecommendations of the NCEP Adult Treatment Panel for the following risk-cutoff thresholds for the [place] population. Total proteinOrdered By: Jose Mobley on 11-28-2024 Protein [Mass/Vol] 6.8 g/dL 5.9-8.4 [facility] Triglycerides measurementOrd ered By: Makayla Mobley on 11-28-2024 Triglyceride [Mass/Vol] 121 mg/dL <199 [facility] Comment on above: The drugs N-Acetylcy steine and Metamizole may falsely depress this assay. Normal range: <150 mg/dLBorderline High: 150-199 mg/dLHigh: 200-499 mg/dLVery High: >500 mg/dL Cardiology Visit Reporton Cardiology Visit Report [facility] [address] [place] [address] OFFICE VISIT Date of Service: 05/31/24 MR#: [id number] Acct: [id number] Name: MAKAYLA OREILLY Rep #: [id number] : 1950 Provider: Dr. Robin Hagen MD Age/Sex: 74/M Location: [facility] Status: Signed HPI HPI History of Present Illness Details: MAKAYLA OREILLY, is a 73 M who presents to the office today for a cardiovascular follow-up. 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 From a cardiac standpoint, patient is doing well. He does not have any chest discomfort/heaviness/t ightness. His exercise tolerance is stable for his age. He does not have any worsening symptoms of shortness of breath. He denies any PND. He does not have any orthopnea. He does not have any symptoms of congestive heart failure. He does not have any palpitations that he is aware of. He does not have any lightheadedness or dizziness. He does not have any near-syncope or syncope. He does not have any lower extremity edema. He does not have any symptoms of claudication. Intake Vital Signs 04/07/23 10:30 05/31/24 10:35 Height 6 ft 1 in 6 ft 1 in Weight: 224 lb BMI 29.5 BP 131/84 H Blood Pressure Location Lt brachial Position Sitting Respiration 16 Pulse 60 Pulse Source Monitor Pulse Oximetry (%) 95 Oxygen Delivery Method room air Intake Visit Reasons: 1 Y FU Accompanied by: Self Is patient in pain?: No Allergies No Known Allergies Allergy (Verified 05/31/24 10:36) Medications ???Medication ???Instructions ???Recorded ???Confirmed ???Type aspirin 81 mg tablet,delayed 81 mg PO QDAY 01/02/18 05/31/24 History release (Adult Low Dose Aspirin) atorvastatin 10 mg tablet 10 mg PO QDAY #90 tabs 10/27/23 05/31/24 Rx metoprolol succinate 25 mg 25 mg PO QDAY #90 tabs 10/27/23 05/31/24 Rx tablet,extended release 24 hr ramipril 10 mg capsule 10 mg PO QDAY #90 caps 10/27/23 05/31/24 Rx Ejection fraction %: 60 Have you fallen in the past year?: No PFSH Medical History Nonrheumatic mitral (valve) insufficiency Nonrheumatic mitral (valve) prolapse Pure hypercholesterolemia Patent foramen ovale Aortic root dilatation 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) Dyspnea Supraventricular tachycardia Cardiomyopathy in disease classified elsewhere Atherosclerotic heart disease of [place] coronary artery without angina pectoris Surgical History History of vasectomy Family History Father No problems noted. Social History Smoking Status: Former smoker alcohol intake: never substance use type: does not use caffeine: Yes Type: coffee Number of servings: 4 ROS Const Const: Negative for fatigue, weakness, fever(s), headache(s), chills, frequent falls, night sweats, excessive sweating, weight gain or weight loss Eyes Eyes: Negative for blind spots, loss of peripheral vision, transient loss of vision, blurry vision, change in vision or double vision ENT ENT: Positive for dizziness (Occ. Hx vertigo); Negative for headache(s), tinnitus, Nosebleed/epistaxis, balance problems or neck pain Cardio Chest Pain: No Palpitations: No Edema: None Muscle aches with walking: None Resp Respiratory: Negative for SOB with activity, SOB at rest, SOB orthopnea SOB lying down or Cough GI GI: Negative nausea, vomiting, heartburn, bloating, vomiting blood/hematemesis, bright, red blood in stools or black,tarry stools : Negative for hematuria or frequent nighttime urination/ nocturia Musc Musc: Negative for muscle aches/ myalgia, muscle weakness, joint pain or balance problems Skin Skin: Negative non-healing lesions, rash, unusual bruising or wounds Neuro Neuro: Positive for dizziness (Occ. Hx vertigo) and lightheadedness (Occ. Hx vertigo); Negative for near syncope, syncope, orthostatic symptoms, frequent falls, headache(s), weakness, confusion, memory loss, restless legs, blurry vision or double vision Jairo Hematologic/Lymphatic: Positive for easy bruising; Negative for easy bleeding Endo Endo: Negative for fatigue, cold intolerance, heat intolerance or excessive sweating Psych Psych: Negative for anxiety or depression Allergy Allergy/Immunology: Negative for rash Cardiology Exam Const Appearance: cooperative, healthy appearing, comfortable, no acute distre (more content not included)... Normal [facility] Lipid Profileon 05-31-2024 Cholesterol [Mass/Vol] 150 mg/dL Normal 200 [facility] Comment on above: Result Comment: <200 mg/dL Desirable 200-240 mg/dL Borderline >240 mg/dL High Risk Performed By: #### L 500.4100, L500.3400 #### [facility] [address] [place], [address] Cholesterol in HDL [Mass/Vol] 49 mg/dL Normal [facility] Comment on above: Result Comment: The drugs N-Acetylcysteine and Metamizole may falsely depress this assay. Reference Range HDL <40 mg/dL Low HDL Cholesterol HDL >or= 60 mg/dL High HDL Cholesterol Performed By: #### L 500.4100, L500.3400 #### [facility] [address] [place], [address] Cholesterol in LDL [Mass/Vol] 82 mg/dL Normal 0-130 [facility] Comment on above: Performed By: #### L 500.4100, L500.3400 #### [facility] [address] [place], [address] Cholesterol in VLDL [Mass/Vol] 19 mg/dL Normal 5-40 [facility] Comment on above: Performed By: #### L 500.4100, L500.3400 #### [facility] [address] [place], [address] Triglyceride [Mass/Vol] 94 mg/dL Normal [facility] Comment on above: Result Comment: The drugs N-Acetylcysteine and Metamizole may falsely depress this assay. Serum Triglycerides Reference Interval Normal <150 mg/dL Borderline high 150 - 199 mg/dL High 200 - 499 mg/dL Very High > or = 500 mg/dL Performed By: #### L 500.4100, L500.3400 #### [facility] [address] [place], [address] Liver Profileon 05-31-2024 Albumin [Mass/Vol] 3.8 g/dL Normal 3.2-5.0 [facility] Comment on above: Performed By: #### L 500.4100, L500.3400 #### [facility] [address] [place], [address] ALK P 97 U/L Normal 45-117 [facility] Comment on above: Performed By: #### L 500.4100, L500.3400 #### [facility] [address] [place], [address] ALT [Catalytic activity/Vol] 25 U/L Normal 16-61 [facility] Comment on above: Performed By: #### L 500.4100, L500.3400 #### [facility] [address] [place], [address] AST [Catalytic activity/Vol] 27 U/L Normal 15-37 [facility] Comment on above: Performed By: #### L 500.4100, L500.3400 #### [facility] [address] [place], [address] Bilirubin [Mass/Vol] 0.60 mg/dL Normal 0.20-1.00 [facility] Comment on above: Result Comment: For patients on eltrombopag therapy, use of Dimension [place] TBIL is not recommended. Performed By: #### L 500.4100, L500.3400 #### [facility] [address] [place], [address] Bilirubin.direct [Mass/Vol] 0.16 mg/dL Normal 0.00-0.30 [facility] Comment on above: Performed By: #### L 500.4100, L500.3400 #### [facility] [address] [place], [address] Globulin (S) [Mass/Vol] 3.5 g/dL Normal 2.2-4.2 [facility] Comment on above: Performed By: #### L 500.4100, L500.3400 #### [facility] [address] [place], [address] T PROT 7.3 g/dL Normal 6.4-8.2 [facility] Comment on above: Performed By: #### L 500.4100, L500.3400 #### [facility] [address] [place], [address] Basophil percentageOrdered B y: Laurie Valdivia on 04-07-2023 Bilirubin [Mass/Vol] 0.30 mg/dL 0.20-1.00 [facility] Comment on above: For patients on eltr ombopag therapy, use of Dimension [place] TBIL is not recommended. Cholesterol [Mass/Vol] 142 mg/dL <200 [facility] Comment on above: <200 mg/dL Desirable 200-240 mg/dL Borderline >240 mg/dL High Risk Protein [Mass/Vol] 7.0 g/dL 6.4-8.2 [facility] Triglyceride [Mass/Vol] 154 mg/dL <199 [facility] Comment on above: The drugs N-Acetylcy steine and Metamizole may falsely depress this assay.Serum Triglycerides Reference Interval Normal <150 mg/dL Borderline high 150 - 199 mg/dL High 200 - 499 mg/dL Very High > or = 500 mg/dL Direct bilirubinOrdered By: Laurie Valdivia on 04-07-2023 Bilirubin.direct [Mass/Vol] 0.14 mg/dL 0.00-0.30 [facility] - Chemistry and C hemistry - challengeOrdered By: Laurie Valdivia on 04-07-2023 ALP [Catalytic activity/Vol] 86 U/L 45-117 [facility] ALT [Catalytic activity/Vol] 24 U/L 16-61 [facility] Globulin (S) [Mass/Vol] 3.4 g/dL 2.2-4.2 [facility] Serum or plasma albumin caryl urement (mass/volume)Ordered By: Lauire Valdivia on 04-07-2023 Albumin [Mass/Vol] 3.6 g/dL 3.2-5.0 [facility] Serum or plasma cholesterol in HDL measurement (mass/volume)Ordered By: Laurie Valdivia on 04-07-2023 Cholesterol in HDL [Mass/Vol] 46 mg/dL >40 [facility] Comment on above: The drugs N-Acetylcy steine and Metamizole may falsely depress this assay. Reference Range HDL <40 mg/dL Low HDL Cholesterol HDL >or= 60 mg/dL High HDL Cholesterol Serum or plasma cholesterol in VLDL measurement (mass/volume)Ordered By: Laurie Valdivia on 04-07-2023 Cholesterol in VLDL [Mass/Vol] 31 mg/dL 5-40 [facility] Serum or plasma low density lipoprotein (LDL) cholesterol measurement (mass/volume)Ordered By: Laurie Valdivia on 04-07-2023 Cholesterol in LDL [Mass/Vol] 65 mg/dL 0-130 [facility] Thin prep Papanicolaou smear with manual screeningOrdered By: Laurie Valdivia on 04-07-2023 Thin prep Papanicolaou smear with manual screening 23 U/L 15-37 [facility] INHOUSE COVID 19 (ONLY) RAPI D (32992)Ordered By: Casi Gordon on 06-04-2022 SARS-CoV-2 (COVID-19) RNA WALTER+probe Ql (Unsp spec) Positive Normal [facility]; [facility] Work Phone: PSA (PROSTATE SPECIFIC ANTIG EN) (V76.44)Ordered By: Well Digger on 04-11-2019 Prostate specific Ag [Mass/Vol] 2.6 ng/mL Normal 0.0-4.0 [facility] Work Phone: Comment on above: Yary ECLIA methodol ogy. .According to the [employer], Serum PSA shoulddecrease and remain at undetectable levels after radicalprostatectomy. The AUA defines biochemical recurrence as an initialPSA value 0.2 ng/mL or greater followed by a subsequent confirmatoryPSA value 0.2 ng/mL or greater.Values obtained with different assay methods or kits cannot be usedinterchangeably. Results cannot be interpreted as absolute evidenceof the presence or absence of malignant disease. PATIENT NOT FASTINGP ERFORMED BY: [employer] [id number] [facility] [id number] Information: [id number] CBC, Platelets & Auto Diff ( [id number])Ordered By: Well Digger on 04-10-2018 Basophils #/vol (Bld) 0.0 {x10E3/uL} Normal 0.0-0.2 [facility] Work Phone: Comment on above: PATIENT NOT FASTINGP ERFORMED BY: [employer] Mccxyn25[address] VouchARformerly [facility] [id number] Basophils (Bld) [#/Vol] 0.0 10*3/uL Normal 0.0-0.2 [facility]; [facility] Work Phone: Comment on above: PATIENT NOT FASTINGP ERFORMED BY: [employer] [facility] [id number] Basophils/100 WBC (Bld) 1 % Normal [facility] Work Phone: Comment on above: PATIENT NOT FASTINGP ERFORMED BY: [employer] Yxyaro6890 [address] VouchARformerly [facility] [id number] Eosinophils #/vol (Bld) 0.1 {x10E3/uL} Normal 0.0-0.4 [facility] Work Phone: Comment on above: PATIENT NOT FASTINGP ERFORMED BY: [employer] Qflnxo3340 [facility] [id number] Eosinophils (Bld) [#/Vol] 0.1 10*3/uL Normal 0.0-0.4 [facility]; [facility] Work Phone: Comment on above: PATIENT NOT FASTINGP ERFORMED BY: MYA LabColacey McleodVucxlo8719 Campos RoadAtrium Health [place]in [place] [id number] Eosinophils/100 WBC (Bld) 2 % Normal [facility] Work Phone: Comment on above: PATIENT NOT FASTINGP ERFORMED BY: MYA Katelacey McleodBlzvwe6[address] [facility] [place] [id number] Erythrocyte distribution width Ratio (RBC) 13.7 % Normal 12.3-15.4 [facility] Work Phone: Comment on above: PATIENT NOT FASTINGP ERFORMED BY: MYA [facility] Jrjbal3940 [address] RoadAtrium Health [place]lyin [place] [id number] Hematocrit Volume Fraction (Bld) 46.9 % Normal 37.5-51.0 [facility] Work Phone: Comment on above: PATIENT NOT FASTINGP ERFORMED BY: MYA Stark[address] [facility] [id number] Hemoglobin mass conc (Bld) 15.7 g/dL Normal 13.0-17.7 [facility] Work Phone: Comment on above: PATIENT NOT FASTINGP ERFORMED BY: MYA YolandaChante McleodGdfrvb2663 [address] [facility] [id number] Immature granulocytes #/vol (Bld) 0.0 {x10E3/uL} Normal 0.0-0.1 [facility] Work Phone: Comment on above: PATIENT NOT FASTINGP ERFORMED BY: MYA [facility] Nhoyak2841 [address] RoadAtrium Health [place]in [place] [id number] Immature granulocytes (Bld) [#/Vol] 0.0 10*3/uL Normal 0.0-0.1 [facility]; [facility] Work Phone: Comment on above: PATIENT NOT FASTINGP ERFORMED BY: MYA YolandaChante McleodAjdiov7473 Campos Roadblin [place] [id number] Immature granulocytes/100 WBC (Bld) 0 % Normal [facility] Work Phone: Comment on above: PATIENT NOT FASTINGP ERFORMED BY: MYA LabChante Daotbh8870 [facility] [id number] Lymphocytes #/vol (Bld) 1.8 {x10E3/uL} Normal 0.7-3.1 [facility] Work Phone: Comment on above: PATIENT NOT FASTINGP ERFORMED BY: MYA [facility] CenterCoBacharach Institute for RehabilitationPtmqng6916 [facility] [id number] Lymphocytes (Bld) [#/Vol] 1.8 10*3/uL Normal 0.7-3.1 [facility]; [facility] Work Phone: Comment on above: PATIENT NOT FASTINGP ERFORMED BY: MYA [facility] CenterChante McleodSptigo6634 [facility] [id number] Lymphocytes/100 WBC (Bld) 26 % Normal [facility] Work Phone: Comment on above: PATIENT NOT FASTINGP ERFORMED BY: MYA Mcleodlin6370 [facility] [id number] MCH Entitic mass (RBC) 29.9 pg Normal 26.6-33.0 [facility] Work Phone: Comment on above: PATIENT NOT FASTINGP ERFORMED BY: MYA LabBrisa Ubsxgo6231 [facility] [id number] MCHC mass conc (RBC) 33.5 g/dL Normal 31.5-35.7 Comp [facility] Work Phone: Comment on above: PATIENT NOT FASTINGP ERFORMED BY: MYA LabAudrain [facility] Center Wivgal7728 [facility] [id number] MCV Entitic volume (RBC) 89 fL Normal 79-97 [facility] Work Phone: Comment on above: PATIENT NOT FASTINGP ERFORMED BY: MYA LabColacey McleodIizjhw9302 [facility] [id number] Monocytes #/vol (Bld) 0.7 {x10E3/uL} Normal 0.1-0.9 [facility] Work Phone: Comment on above: PATIENT NOT FASTINGP ERFORMED BY: MYA LabAudrain Medical Center Knfztf7328 Campos RoadDublin [place] [id number] Monocytes (Bld) [#/Vol] 0.7 10*3/uL Normal 0.1-0.9 [facility]; [facility] Work Phone: Comment on above: PATIENT NOT FASTINGP ERFORMED BY: MYA YolandaColacey Zblvck4269 [address]pos RoadDublin [place] [id number] Monocytes/100 WBC (Bld) 11 % Normal [facility] Work Phone: Comment on above: PATIENT NOT FASTINGP ERFORMED BY: MYA [facility] Ktydhn3643 [address]pos RoadDublin [place] [id number] Neutrophils #/vol (Bld) 4.2 {x10E3/uL} Normal 1.4-7.0 [facility] Work Phone: Comment on above: PATIENT NOT FASTINGP ERFORMED BY: MYA Mcleodlin6370 [address] RoadDublin [place] [id number] Neutrophils (Bld) [#/Vol] 4.2 10*3/uL Normal 1.4-7.0 [facility]; [facility] Work Phone: Comment on above: PATIENT NOT FASTINGP ERFORMED BY: MYA YolandaChante McleodLasoze4570 [address]pos RoadDublin [place] [id number] Neutrophils/100 WBC (Bld) 60 % Normal [facility] Work Phone: Comment on above: PATIENT NOT FASTINGP ERFORMED BY: MYA [facility] Spitgf4138 [address] RoadDublin [place] [id number] Platelets #/vol (Bld) 236 {x10E3/uL} Normal 150-379 [facility] Work Phone: Comment on above: PATIENT NOT FASTINGP ERFORMED BY: MYA [facility] Wqpdss0180 [address] RoadDublin [place] [id number] Platelets (Bld) [#/Vol] 236 10*3/uL Normal 150-379 [facility]; [facility] Work Phone: Comment on above: PATIENT NOT FASTINGP ERFORMED BY: MYA [facility] Dsxgzy4163 [address] RoadDublin [place] [id number] RBC #/vol (Bld) 5.25 {x10E6/uL} Normal 4.14-5.[address] [facility] [address] Louisensive [facility] Work Phone: Comment on above: PATIENT NOT FASTINGP ERFORMED BY: MYA Stark6[address] [facility] [place] [id number] RBC (Bld) [#/Vol] 5.25 10*6/uL Normal 4.14-5.80 Compr ensive [facility]; [facility] Work Phone: Comment on above: PATIENT NOT FASTINGP ERFORMED BY: MYA [facility] Sfiazp9706 [address] [facility] [id number] WBC #/vol (Bld) 6.9 {x10E3/uL} Normal 3.4-10.8 Compr [facility] Internal Medicine Work Phone: Comment on above: PATIENT NOT FASTINGP ERFORMED BY: MYA LabBrisarp Fllztl6291 [facility] [id number] WBC (Bld) [#/Vol] 6.9 10*3/uL Normal 3.4-10.8 Compre [facility]; [facility] Work Phone: Comment on above: PATIENT NOT FASTINGP ERFORMED BY: MYA Stark6370 [facility] [id number] Metabolic Panel, Comprehensi ve ([id number])Ordered By: Well Digger on 04-10-2018 Albumin mass conc 4.4 g/dL Normal 3.6-4.8 Compreh [facility] Work Phone: Comment on above: PATIENT NOT FASTINGP ERFORMED BY: MYA [facility] Pphoxw7283 [facility] [place] [id number] Albumin/Globulin mass ratio 1.8 {ratio} Normal 1.2-2.2 [facility] Work Phone: Comment on above: PATIENT NOT FASTINGP ERFORMED BY: MYA LabBrisarp Uyfxce8091 [facility] [id number] ALP [Catalytic activity/Vol] 82 U/L Normal 39-117 [facility]; [facility] Work Phone: Comment on above: PATIENT NOT FASTINGP ERFORMED BY: MYA [facility] Gnuljd5456 [address] RoadDublin [place] [id number] ALP enzyme act/vol 82 [iU]/L Normal 39-117 [facility] Work Phone: Comment on above: PATIENT NOT FASTINGP ERFORMED BY: CB [facility] Dlkkdp8579 Cam[address] RoadDublin [place] [id number] ALT [Catalytic activity/Vol] 19 U/L Normal 0-44 [facility]; [email or web address] Work Phone: Comment on above: PATIENT NOT FASTINGP ERFORMED BY: MYA [facility] Dndjem4667 [address] RoadDublin [place] [id number] ALT enzyme act/vol 19 [iU]/L Normal 0-44 [facility] Work Phone: Comment on above: PATIENT NOT FASTINGP ERFORMED BY: MYA [facility] Uubcza0420 [address] RoadDublin [place] [id number] AST [Catalytic activity/Vol] 25 U/L Normal 0-40 [facility]; [email or web address] Work Phone: Comment on above: PATIENT NOT FASTINGP ERFORMED BY: MYA YolandaCorp Xzbecj7361 [address] RoadDublin [place] [id number] AST enzyme act/vol 25 [iU]/L Normal 0-40 [facility] Work Phone: Comment on above: PATIENT NOT FASTINGP ERFORMED BY: MYA [facility] Xrwwri7789 [address] RoadDublin [place] [id number] Bilirubin mass conc 0.5 mg/dL Normal 0.0-1.2 [facility] Work Phone: Comment on above: PATIENT NOT FASTINGP ERFORMED BY: MYA [facility] Pafbgt8541 [address] RoadDublin [place] [id number] Calcium mass conc 9.9 mg/dL Normal 8.6-10.2 [facility] Work Phone: Comment on above: PATIENT NOT FASTINGP ERFORMED BY: MYA [facility] Esdqwr8742 [address] RoadAtrium Health Stanlyin [place] [id number] Chloride molar conc 106 mmol/L Normal 96-106 Compr ehensive Internal Medicine Work Phone: Comment on above: PATIENT NOT FASTINGP ERFORMED BY: MYA [facility] Kihquv1377 [address] Roadblin [place] [id number] CO2 molar conc 19 mmol/L Abnormal 20-29 Comprehens kortney Internal [facility] Work Phone: Comment on above: PATIENT NOT FASTINGP ERFORMED BY: MYA [facility] Bzcskc8234 [address] RoadAtrium Health Stanlyin [place] [id number] Creatinine mass conc 1.14 mg/dL Normal 0.76-1.27 Comp rehensive Internal Medicine Work Phone: Comment on above: PATIENT NOT FASTINGP ERFORMED BY: MYA LabAudrain Medical Center Uksatn6186 [address] [facility] [place] [id number] GFR/1.73 sq M predicted among blacks CKD-EPI vol rate/area (S/P/Bld) 75 mL/min/1.73 Normal Comprehensiv e Internal Medicine Work Phone: Comment on above: PATIENT NOT FASTINGP ERFORMED BY: MYA LabCo Myeyht7399 [address] [facility] [place] [id number] GFR/1.73 sq M predicted among non-blacks CKD-EPI vol rate/area (S/P/Bld) 65 mL/min/1.73 Normal [facility] Work Phone: Comment on above: PATIENT NOT FASTINGP ERFORMED BY: MYA LabCo Xgzcdk5176 [address] [facility]in [place] [id number] Globulin mass conc (S) 2.5 g/dL Normal 1.5-4.5 [facility] Work Phone: Comment on above: PATIENT NOT FASTINGP ERFORMED BY: MYA [facility] Lymhvp6685 [address] [facility]in [place] [id number] Glucose mass conc 90 mg/dL Normal 65-99 Compreh ensive [facility] Medicine Work Phone: Comment on above: PATIENT NOT FASTINGP ERFORMED BY: MYA LabCo Uzeqsa2219 [address] [facility]in [place] [id number] Potassium molar conc 4.4 mmol/L Normal 3.5-5.2 Comp rehensive [facility] Medicine Work Phone: Comment on above: PATIENT NOT FASTINGP ERFORMED BY: MYA [facility] Vzeexk2956 [address] [facility] [place] [id number] Protein mass conc 6.9 g/dL Normal 6.0-8.5 Compreh ensive [facility] Medicine Work Phone: Comment on above: PATIENT NOT FASTINGP ERFORMED BY: MYA [facility] Wuytyw8958 [address] [facility] [place] [id number] Sodium molar conc 143 mmol/L Normal 134-144 Compreh ensive [facility] Work Phone: Comment on above: PATIENT NOT FASTINGP ERFORMED BY: MYA [facility] Glslub8006 [address] [facility] [id number] Urea nitrogen mass conc 20 mg/dL Normal 8-27 [facility] Work Phone: Comment on above: PATIENT NOT FASTINGP ERFORMED BY: MYA [facility] Wlfrmb6842 [address] [facility] [id number] Urea nitrogen/Creatinine mass ratio 18 mg/mg Normal 10-24 [facility] Work Phone: Comment on above: PATIENT NOT FASTINGP ERFORMED BY: MYA [facility] Lnjdgx6515 [facility] [id number] PSA (PROSTATE SPECIFIC ANTIG EN) (V76.44)Ordered By: Well Digger on 04-10-2018 Prostate specific Ag mass conc 1.5 ng/mL Normal 0.0-4.0 [facility] Work Phone: Comment on above: Yary ECLIA methodol ogy. .According to the [place] [employer], Serum PSA shoulddecrease and remain at undetectable levels after radicalprostatectomy. The AUA defines biochemical recurrence as an initialPSA value 0.2 ng/mL or greater followed by a subsequent confirmatoryPSA value 0.2 ng/mL or greater.Values obtained with different assay methods or kits cannot be usedinterchangeably. Results cannot be interpreted as absolute evidenceof the presence or absence of malignant disease. PATIENT NOT FASTINGP ERFORMED BY: CB [facility] Xabigv0954 [address] [facility] [id number] TSH ([id number])Ordered By: Blas Jack on 04-10-2018 Thyrotropin Qn 4.070 {uIU/mL} Normal 0.450-4.500 Compr ensive [facility] Work Phone: Comment on above: PATIENT NOT FASTINGP ERFORMED BY: CB [facility] Tqewjz7334 [address] VouchARformerly [facility] [id number] Urinalysis, Office ([id number])Or dered By: Cassandra Rodgers on 04-10-2018 Bilirubin Ql (U) Negative Normal Comprehe nsive Internal Medicine Work Phone: Bilirubin Ql (U) Negative Normal Comprehe nsive [facility]; [facility] Work Phone: Glucose Test strip (U) [Mass/Vol] Negative Normal [facility]; [facility] Work Phone: Glucose Test strip mass conc (U) Negative Normal [facility] Work Phone: Hemoglobin Ql (U) Hemolyzed Trace Normal Co mprehensive [facility] Work Phone: Ketones Ql (U) Negative Normal Comprehens [facility] Work Phone: Ketones Ql (U) Negative Normal Comprehens [facility]; [facility] Work Phone: Leukocyte esterase Test strip Ql (U) Negative Normal [facility] Work Phone: Leukocyte esterase Test strip Ql (U) Negative Normal [facility]; [facility] Work Phone: Nitrite Ql (U) Negative Normal Comprehens [facility] Work Phone: Nitrite Ql (U) Negative Normal Comprehens [facility]; [facility] Work Phone: pH (U) 5 [pH] Abnormal [facility] Work Phone: Protein Ql (U) Negative Normal Comprehens [facility] Work Phone: Protein Ql (U) Negative Normal Comprehens [facility]; [facility] Work Phone: Specific gravity Relative Density (U) 1.025 1 Normal Comprehensi ve Internal Medicine Work Phone: Urobilinogen mass/time (24H U) Normal Normal [facility] Work Phone: Rapid Flu (45610 x 2)Ordered By: Anabel Werner on 09-05-2017 FLUAV Ag IA Ql (Throat) Positive Normal [facility] Work Phone: FLUAV Ag IA Ql (Throat) Positive Normal [facility]; [facility] Work Phone: Office Visiton 06-30-2017 Dietary management education, guidance, and counseling (procedure) yes Invalid Interpretation Code [employer] Work Phone: Documentation of current medications (procedure) Done Invalid Interpretation Code [employer] Work Phone: Fall risk assessment No Invalid Interpretation Code [employer] Work Phone: Tobacco use CPHS Former smoker Invalid Interpretation Code [employer] Work Phone: Lab Report: Lipid Profileon 06-20-2017 Cholesterol 164 mg/dL Invalid Interpretation Code 200 [employer] Work Phone: HDL Cholesterol 50 mg/dL Invalid Interpretation Code [employer] Work Phone: LDL Cholesterol 93 mg/dL Invalid Interpretation Code 0-130 [employer] Work Phone: Triglyceride 103 mg/dL Invalid Interpretation Code [employer] Work Phone: very low density lipoproteins 21 mg/dL Invalid Interpretation Code 5-40 [employer] Work Phone: Lab Report: Liver Profileon 06-20-2017 Alanine aminotransferase (ALT) 25 U/L Invalid Interpretation Code 12-78 [employer] Work Phone: Albumin 3.8 g/dL Invalid Interpretation Code 3.4-5.0 [employer] Work Phone: Alkaline phosphatase (ALP) 83 U/L Invalid Interpretation Code 45-117 [employer] Work Phone: Aspartate aminotransferase (AST) 25 U/L Invalid Interpretation Code 15-37 [employer] Work Phone: Bilirubin (direct) 0.12 mg/dL Invalid Interpretation Code 0.00-0.30 [employer] Work Phone: Bilirubin (total) 0.40 mg/dL Invalid Interpretation Code 0.20-1.00 [employer] Work Phone: Globulin 3.2 g/dL Invalid Interpretation Code 2.2-4.2 [employer] Work Phone: Protein 7.0 g/dL Invalid Interpretation Code 6.4-8.2 [employer] Work Phone: Office Visit: [facility] 12-24-19 17 Documentation of current medications (procedure) Done Invalid Interpretation Code [employer] Work Phone: Lab Report: CBC W/Diff, Auto matedon 12-16-2016 Absolute Neut 3.5 X10 3/UL Invalid Interpretation Code 2.0-7.7 [employer] Work Phone: Basophils/100 WBC Auto (Bld) 0.5 % Invalid Interpretation Code 0-1 [employer] Work Phone: Eosinophils/100 leukocytes 3.5 % Invalid Interpretation Code 0-5 [employer] Work Phone: Erythrocyte distribution width Auto Ratio (RBC) 12.7 % Invalid Interpretation Code 11.6-14.6 [employer] Work Phone: Erythrocytes (RBC) 5.43 10*6/uL Invalid Interpretation Code 4.6-6.2 [employer] Work Phone: Hematocrit (HCT) 49.1 % Invalid Interpretation Code 40-54 [employer] Work Phone: Hemoglobin mass conc (Bld) 16.2 g/dL Invalid Interpretation Code 13.0-16.5 [employer] Work Phone: Immature granulocytes/100 WBC (Bld) 0.200 % Invalid Interpretation Code 0.0-0.9 [employer] Work Phone: Lymphocytes 1.65 X10 3/UL Invalid Interpretation Code 0.83-4.51 [employer] Work Phone: Lymphocytes/100 leukocytes 27.3 % Invalid Interpretation Code 19-41 [employer] Work Phone: MCH 29.8 pg Invalid Interpretation Code 27.0-32.0 [employer] Work Phone: MCHC mass conc (RBC) 33.0 G/GL Invalid Interpretation Code 32-36 [employer] Work Phone: MCV 90.4 fL Invalid Interpretation Code 80-94 [employer] Work Phone: Monocytes/100 leukocytes 10.3 % High 0-10 [employer] Work Phone: Neutrophils/100 WBC Auto (Bld) 58.2 % Invalid Interpretation Code 47-70 [facility] Work Phone: Platelets 210 10*3/mm3 Invalid Interpretation Code 150-450 [employer] Work Phone: PMV by [facility] 9.3 fL Invalid Interpretation Code 6.2-12.0 [employer] Work Phone: RDW SD 42.1 fL Invalid Interpretation Code 35.1-43.9 [facility] Work Phone: WBC (Leukocytes) 6.0 10*3/uL Invalid Interpretation Code 4.4-11.0 [facility] Work Phone: Lab Report: Comprehensive Wy tabolic Profilon 12-16-2016 Albumin/Globulin Ratio 1.1 {ratio} Invalid Interpretation Code 0.9-2.4 [facility] Work Phone: Anion gap 7 mmol/L Invalid Interpretation Code 5-15 [facility] Work Phone: BUN/Creatinine Ratio 16.0 RATIO Invalid Interpretation Code 10-20 [facility] Work Phone: Calcium 8.9 mg/dL Invalid Interpretation Code 8.5-10.1 [facility] Work Phone: Chloride 105 mmol/L Invalid Interpretation Code 98-107 [facility] Work Phone: CO2 27.0 mmol/L Invalid Interpretation Code 21.0-32.0 [facility] Work Phone: Creatinine 1.19 mg/dL Invalid Interpretation Code 0.70-1.30 [facility] Work Phone: eGFR (non-black) 78 mL/min/{1.73_m2} Invalid Interpretation Code >60 [facility] Work Phone: eGFR (non-black) 65 mL/min/{1.73_m2} Invalid Interpretation Code >60 [facility] Work Phone: Glucose mass conc 82 mg/dL Invalid Interpretation Code 70-110 [facility] Work Phone: Potassium molar conc 4.0 mmol/L Invalid Interpretation Code 3.5-5.1 [facility] Work Phone: Sodium 139 mmol/L Invalid Interpretation Code 136-145 [facility] Work Phone: Urea nitrogen 19 mg/dL High 7-18 [facility] Work Phone: Lab Report: PSA,Total - [place] al Screenon 12-16-2016 PSA,TOT SCREEN 1.52 ng/mL Invalid Interpretation Code 0.00-4.00 [facility] Work Phone: Lab Report: Thyroid Stim Hor gemma (TSH)on 12-16-2016 Thyroid stimulating hormone (TSH) 3.88 u[iU]/mL High 0.358-3.74 [facility] Work Phone: Lab Report: Urinalysis, Rout ine (Dipstick)on 12-16-2016 Bilirubin Ql (U) Negative Invalid Interpretation Code Negative [facility] Work Phone: NITRITE UR Negative Invalid Interpretation Code Negative [facility] Work Phone: OCCULT BLOOD-UR Negative Invalid Interpretation Code Negative [facility] Work Phone: specific gravity, urine 1.015 Invalid Interpretation Code 1.002-1.030 [facility] Work Phone: Urine, clarity Clear Invalid Interpretation Code Clear [facility] Work Phone: Urine, color Yellow Invalid Interpretation Code Yellow [facility] Work Phone: Urine, glucose presence Normal mg/dl Invalid Interpretation Code Normal [facility] Work Phone: Urine, ketones presence Negative Invalid Interpretation Code Negative [facility] Work Phone: Urine, leukocyte esterase presence Negative Invalid Interpretation Code Negative [facility] Work Phone: Urine, pH 6.0 [pH] Invalid Interpretation Code 5.0 - 8.0 [facility] Work Phone: Urine, protein Negative Invalid Interpretation Code Negative [facility] Work Phone: UROBILI Normal mg/dl Invalid Interpretation Code Normal [facility] Work Phone: Clinical Lists Update: Prelo drama critic 07-13-2016 Left ventricular Ejection fraction 60 % Invalid Interpretation Code [facility] Work Phone: Office Visiton 06-28-2016 Dietary management education, guidance, and counseling (procedure) yes Invalid Interpretation Code [facility] Work Phone: Replaced Document: Sharyn Ricci CG Observationson 01-20-2016 EKG QRS axis -20 deg Invalid Interpretation Code [facility] Work Phone: Interpretation Sinus Bradycardia WITHIN NORMAL LIMITS Invalid Interpretation Code [facility] Work Phone: P [place] 90 deg Invalid Interpretation Code [facility] Work Phone: [place] Interval 198 ms Invalid Interpretation Code [facility] Work Phone: Pulse (Heart Rate) 57 /min Invalid Interpretation Code [facility] Work Phone: QRS Duration 114 ms Invalid Interpretation Code [facility] Work Phone: QT Interval new path ms Invalid Interpretation Code [facility] Work Phone: QTc Johnson 421 ms Invalid Interpretation Code [facility] Work Phone: T [place] -1 deg Invalid Interpretation Code [facility] Work Phone: Office Visit: [facility] 12-26-19 15 cardiac risk group C Invalid Interpretation Code [facility] Work Phone: General cardiovascular disease 10Y risk [#] Pierz.D'Agostino N/A Invalid Interpretation Code [facility] Work Phone: Tobacco smoking status NHIS Never Invalid Interpretation Code [facility] Work Phone: Tobacco use CPHS Former smoker Invalid Interpretation Code [facility] Work Phone: CBC W/AUTO DIFF WBC ([id number])O rdered By: Well Digger on 07-31-2014 Basophils #/vol (Bld) 0.0 {x10E3/uL} Normal 0.0-0.2 [facility] Work Phone: Comment on above: PATIENT WAS FASTINGP ERFORMED BY: Aridis PharmaceuticalsBacharach Institute for RehabilitationLgbtxs[address] [place] [address] [id number] Information: [id number] Basophils (Bld) [#/Vol] 0.0 10*3/uL Normal 0.0-0.2 [facility]; [facility] Work Phone: Comment on above: PATIENT WAS FASTINGP ERFORMED BY: Aridis PharmaceuticalsBacharach Institute for RehabilitationPiwmni9075 [facility] [id number] Information: [id number] Basophils/100 WBC (Bld) 1 % Normal [facility] Work Phone: Comment on above: PATIENT WAS FASTINGP ERFORMED BY: [employer] [id number] Information: [id number] Eosinophils #/vol (Bld) 0.1 {x10E3/uL} Normal 0.0-0.4 [facility] Work Phone: Comment on above: PATIENT WAS FASTINGP ERFORMED BY: Aridis PharmaceuticalsBacharach Institute for RehabilitationXhejbf[address] [place] [address] [id number] Information: [id number] Eosinophils (Bld) [#/Vol] 0.1 10*3/uL Normal 0.0-0.4 [facility]; [facility] Work Phone: Comment on above: PATIENT WAS FASTINGP ERFORMED BY: MYA [address] [id number] Information: [id number] Eosinophils/100 WBC (Bld) 2 % Normal [facility] Work Phone: Comment on above: PATIENT WAS FASTINGP ERFORMED BY: [address] [id number] Information: [id number] Erythrocyte distribution width Ratio (RBC) 13.5 % Normal 12.3-15.4 [facility] Work Phone: Comment on above: PATIENT WAS FASTINGP ERFORMED BY: [address] [id number] Information: [id number] Hematocrit Volume Fraction (Bld) 45.8 % Normal 37.5-51.0 [facility] Work Phone: Comment on above: PATIENT WAS FASTINGP ERFORMED BY: [address] [id number] Information: [id number] Hemoglobin mass conc (Bld) 15.9 g/dL Normal 12.6-17.7 [facility] Work Phone: Comment on above: PATIENT WAS FASTINGP ERFORMED BY: [address] [id number] Information: [id number] Immature granulocytes #/vol (Bld) 0.0 {x10E3/uL} Normal 0.0-0.1 [facility] Work Phone: Comment on above: PATIENT WAS FASTINGP ERFORMED BY: [address] [id number] Information: [id number] Immature granulocytes (Bld) [#/Vol] 0.0 10*3/uL Normal 0.0-0.1 [facility]; [facility] Work Phone: Comment on above: PATIENT WAS FASTINGP ERFORMED BY: MYA Antione Aguillon70 [facility] [id number] Information: [id number] Immature granulocytes/100 WBC (Bld) 0 % Normal [facility] Work Phone: Comment on above: PATIENT WAS FASTINGP ERFORMED BY: MYA Kate Cmsyeh2002 [facility] [id number] Information: [id number] Lymphocytes #/vol (Bld) 2.1 {x10E3/uL} Normal 0.7-3.1 [facility] Work Phone: Comment on above: PATIENT WAS FASTINGP ERFORMED BY: MYA Kate Cgffdk[address] [id number] Information: [id number] Lymphocytes (Bld) [#/Vol] 2.1 10*3/uL Normal 0.7-3.1 [facility]; [facility] Work Phone: Comment on above: PATIENT WAS FASTINGP ERFORMED BY: MYA Antione Stark6370 [facility] [id number] Information: [id number] Lymphocytes/100 WBC (Bld) 34 % Normal [facility] Work Phone: Comment on above: PATIENT WAS FASTINGP ERFORMED BY: MYA Kate[address] [id number] Information: [id number] MCH Entitic mass (RBC) 29.9 pg Normal 26.6-33.0 [facility] Work Phone: Comment on above: PATIENT WAS FASTINGP ERFORMED BY: MYA YolandaAudrain Medical Center Ffqozj9534 [facility] [id number] Information: [id number] MCHC mass conc (RBC) 34.7 g/dL Normal 31.5-35.7 Comp [facility] Work Phone: Comment on above: PATIENT WAS FASTINGP ERFORMED BY: MYA GuerreroCorewell Health Green[facility] Hospital6370 [facility] [id number] Information: [id number] MCV Entitic volume (RBC) 86 fL Normal 79-97 [facility] Work Phone: Comment on above: PATIENT WAS FASTINGP ERFORMED BY: [address] [id number] Information: [id number] Monocytes #/vol (Bld) 0.6 {x10E3/uL} Normal 0.1-0.9 [facility] Work Phone: Comment on above: PATIENT WAS FASTINGP ERFORMED BY: Yolanda[address] [id number] Information: [id number] Monocytes (Bld) [#/Vol] 0.6 10*3/uL Normal 0.1-0.9 [facility]; [facility] Work Phone: Comment on above: PATIENT WAS FASTINGP ERFORMED BY: [facility]6370 [facility] [id number] Information: [id number] Monocytes/100 WBC (Bld) 9 % Normal [facility] Work Phone: Comment on above: PATIENT WAS FASTINGP ERFORMED BY: [address] [id number] Information: [id number] Neutrophils #/vol (Bld) 3.3 {x10E3/uL} Normal 1.4-7.0 [facility] Work Phone: Comment on above: PATIENT WAS FASTINGP ERFORMED BY: [place] 8631270 [facility] [id number] Information: [id number] Neutrophils (Bld) [#/Vol] 3.3 10*3/uL Normal 1.4-7.0 [facility]; [facility] Work Phone: Comment on above: PATIENT WAS FASTINGP ERFORMED BY: MYA Stark6370 [facility] [id number] Information: [id number] Neutrophils/100 WBC (Bld) 54 % Normal [facility] Work Phone: Comment on above: PATIENT WAS FASTINGP ERFORMED BY: Kate Jvobxa3696 [facility] [id number] Information: [id number] Platelets #/vol (Bld) 212 {x10E3/uL} Normal 150-379 [facility] Work Phone: Comment on above: PATIENT WAS FASTINGP ERFORMED BY: MYA Love Wrgboj8608 [facility] [id number] Information: [id number] Platelets (Bld) [#/Vol] 212 10*3/uL Normal 150-379 [facility]; [facility] Work Phone: Comment on above: PATIENT WAS FASTINGP ERFORMED BY: [facility]andaAudrain Medical Center Ffhkwr1121 [facility] [id number] Information: [id number] RBC #/vol (Bld) 5.32 {x10E6/uL} Normal 4.14-5.80 [facility] Work Phone: Comment on above: PATIENT WAS FASTINGP ERFORMED BY: YolandaAudrain Medical Center Hnvtiw0818 [facility] [id number] Information: [id number] RBC (Bld) [#/Vol] 5.32 10*6/uL Normal 4.14-5.80 Compr ens[facility]; [facility] Work Phone: Comment on above: PATIENT WAS FASTINGP ERFORMED BY: MYA [facility] Gtlzfl0991 [facility] [id number] Information: [id number] WBC #/vol (Bld) 6.2 {x10E3/uL} Normal 3.4-10.8 [facility] Work Phone: Comment on above: PATIENT WAS FASTINGP ERFORMED BY: MYA Antione Stark[address] [facility]in [place] [id number] Information: [id number] WBC (Bld) [#/Vol] 6.2 10*3/uL Normal 3.4-10.8 [facility]; [facility] Work Phone: Comment on above: PATIENT WAS FASTINGP ERFORMED BY: MYA Antione Stark6370 [facility] [id number] Information: [id number] METABOLIC PANEL, COMPREHENSI VE (22160)Ordered By: Well Digger on 07-31-2014 Albumin mass conc 4.5 g/dL Normal 3.6-4.8 [facility] Work Phone: Comment on above: PATIENT WAS FASTINGP ERFORMED BY: MYA Katelacey Sqdgqk9534 [facility] [id number] Albumin/Globulin mass ratio 2.1 {ratio} Normal 1.1-2.5 [facility] Work Phone: Comment on above: PATIENT WAS FASTINGP ERFORMED BY: MYA LabChante Stark6370 [facility] [id number] ALP [Catalytic activity/Vol] 78 U/L Normal 39-117 [facility]; [facility] Work Phone: Comment on above: PATIENT WAS FASTINGP ERFORMED BY: MYA [facility] Ufpahf2689 [facility] [id number] ALP enzyme act/vol 78 [iU]/L Normal 39-117 [facility] Work Phone: Comment on above: PATIENT WAS FASTINGP ERFORMED BY: MYA [facility] Rgvayl4392 [facility] [id number] ALT [Catalytic activity/Vol] 23 U/L Normal 0-44 [facility]; [facility] Work Phone: Comment on above: PATIENT WAS FASTINGP ERFORMED BY: MYA [facility] Hrzyrg0137 [address] RoadDublin [place] [id number] ALT enzyme act/vol 23 [iU]/L Normal 0-44 [facility] Work Phone: Comment on above: PATIENT WAS FASTINGP ERFORMED BY: MYA [facility] Ryvtnl2645 [address]pos RoadDublin [place] [id number] AST [Catalytic activity/Vol] 31 U/L Normal 0-40 [facility]; [facility] Work Phone: Comment on above: PATIENT WAS FASTINGP ERFORMED BY: CB [facility] Ycyrkt2430 [address]pos RoadDublin [place] [id number] AST enzyme act/vol 31 [iU]/L Normal 0-40 [facility] Work Phone: Comment on above: PATIENT WAS FASTINGP ERFORMED BY: MYA [facility] Zaqsya6681 [address]cmpos RoadDublin [place] [id number] Bilirubin mass conc 0.5 mg/dL Normal 0.0-1.2 [facility] Work Phone: Comment on above: PATIENT WAS FASTINGP ERFORMED BY: MYA [facility] Qpwtxm1022 [address] RoadDublin [place] [id number] Calcium mass conc 9.7 mg/dL Normal 8.6-10.2 [facility] Work Phone: Comment on above: PATIENT WAS FASTINGP ERFORMED BY: MYA [facility] Ldgnye7547 [address] RoadDublin [place] [id number] Chloride molar conc 102 mmol/L Normal 97-108 Compr [facility] Work Phone: Comment on above: PATIENT WAS FASTINGP ERFORMED BY: CB [facility] Ghimqc7874 [address] RoadDublin [place] [id number] CO2 molar conc 25 mmol/L Normal 18-29 Comprehens kortney [facility] Work Phone: Comment on above: PATIENT WAS FASTINGP ERFORMED BY: MYA [facility] Iluisn4497 [address] RoadDublin [place] [id number] Creatinine mass conc 1.13 mg/dL Normal 0.76-1.27 [facility] Work Phone: Comment on above: PATIENT WAS FASTINGP ERFORMED BY: CB [facility] Xdwuce8740 [address]Dublin [place] [id number] GFR/1.73 sq M predicted among blacks CKD-EPI vol rate/area (S/P/Bld) 78 mL/min/1.73 Normal Comprehensiv e [facility] Work Phone: Comment on above: PATIENT WAS FASTINGP ERFORMED BY: CB [facility] Lmeisd3878 [address] RoadDublin [place] [id number] GFR/1.73 sq M predicted among non-blacks CKD-EPI vol rate/area (S/P/Bld) 68 mL/min/1.73 Normal [facility] Work Phone: Comment on above: PATIENT WAS FASTINGP ERFORMED BY: [facility] Jsvlgd0236 [address] [facility]in [place] [id number] Globulin mass conc (S) 2.1 g/dL Normal 1.5-4.5 [facility] Work Phone: Comment on above: PATIENT WAS FASTINGP ERFORMED BY: CB [facility] Qseaei0962 [address] [facility]in [place] [id number] Glucose mass conc 79 mg/dL Normal 65-99 Compreh ens[facility] Work Phone: Comment on above: PATIENT WAS FASTINGP ERFORMED BY: [facility] Cwxxoa77[address] [facility] [id number] Potassium molar conc 4.4 mmol/L Normal 3.5-5.2 Comp rehensive [facility] Work Phone: Comment on above: PATIENT WAS FASTINGP ERFORMED BY: CB [facility] Juwuec75[address] [facility]in [place] [id number] Protein mass conc 6.6 g/dL Normal 6.0-8.5 Compreh ensive [facility] Work Phone: Comment on above: PATIENT WAS FASTINGP ERFORMED BY: CB [facility] Jwtbjv9505 [address] [facility]in [place] [id number] Sodium molar conc 140 mmol/L Normal 134-144 Compreh ensive [facility] Work Phone: Comment on above: PATIENT WAS FASTINGP ERFORMED BY: [employer] Umsptl6102 [facility] [id number] Urea nitrogen mass conc 18 mg/dL Normal 8-27 [email or web address] Internal Medicine Work Phone: Comment on above: PATIENT WAS FASTINGP ERFORMED BY: [employer] Etcrve4289 [facility] [id number] Urea nitrogen/Creatinine mass ratio 16 mg/mg Normal 10-22 [facility] Work Phone: Comment on above: PATIENT WAS FASTINGP ERFORMED BY: [employer] Ibvetn8512 [facility] [id number] PSA (PROSTATE SPECIFIC ANTIG EN) (V76.44)Ordered By: Well Digger on 07-31-2014 Prostate specific Ag mass conc 1.5 ng/mL Normal 0.0-4.0 [facility] Work Phone: Comment on above: [facility] ECLIA methodol ogy. .According to the [employer], Serum PSA shoulddecrease and remain at undetectable levels after radicalprostatectomy. The AUA defines biochemical recurrence as an initialPSA value 0.2 ng/mL or greater followed by a subsequent confirmatoryPSA value 0.2 ng/mL or greater.Values obtained with different assay methods or kits cannot be usedinterchangeably. Results cannot be interpreted as absolute evidenceof the presence or absence of malignant disease. PATIENT WAS FASTINGP ERFORMED BY: [employer] Xbmukk7048 [facility] [id number] TSH ([id number])Ordered By: Syste m Manager Infusion on 07-31-2014 Thyrotropin Qn 3.940 {uIU/mL} Normal 0.450-4.500 [facility] Internal [facility] Work Phone: Comment on above: PATIENT WAS FASTINGP ERFORMED BY: [employer] Gydgcb0300 [facility] [id number] Replaced Document: Sharyn LEROY Observationson 01-01-2014 Pulse (Heart Rate) 405 ms Invalid Interpretation Code [facility] Work Phone: Vital Signs Date Time Vital Sign Value Performing Clinician Facility 04-07-2023 10:30-0400 Body height 185.42 cm INSERTER-C Carmen Louis Work Phone: [facility] 04-07-2023 10:30-0400 Body mass index (BMI) [Ratio] 28.5 kg/m2 INSER[facility]-C Carmen Louis Work Phone: [facility] 04-07-2023 10:30-0400 Body weight 97.97 kg INSERTER-C Carmen Louis Work Phone: [facility] 04-07-2023 10:30-0400 Diastolic blood pressure 81 mm[Hg] INSERTER-C Carmen Louis Work Phone: [facility] 04-07-2023 10:30-0400 Heart rate 61 /min INSERTER-C Carmen Louis Work Phone: [facility] 04-07-2023 10:30-0400 Respiratory rate 18 /min INSERTER-C Carmen Louis Work Phone: [facility] 04-07-2023 10:30-0400 SaO2% (BldA) [Mass fraction] 97 % INSERTER-C Carmen Louis Work Phone: [facility] 04-07-2023 10:30-0400 Systolic blood pressure 133 mm[Hg] INSERTER-C Carmen Louis Work Phone: [facility] 06-04-2022 09:15-0400 Body height 181.61 cm Casi Gordon MA [facility]; [facility] Work Phone: 06-04-2022 09:15-0400 Body mass index (BMI) [Ratio] 30.68 kg/m2 Casi Gordon MA [facility]; [facility] Work Phone: 06-04-2022 09:15-0400 Body surface area Derived from formula 2.22 m2 Casi Gordon MA [facility]; [facility] Work Phone: 06-04-2022 09:15-0400 Body temperature 97.1 [degF] Casi Gordon MA [facility]; [facility] Work Phone: 06-04-2022 09:15-0400 Body weight 101.18 kg Casi Gordon MA [facility]; [facility] Work Phone: 06-04-2022 09:15-0400 Diastolic blood pressure 80 mm[Hg] Casi oGrdon MA [facility]; [facility] Work Phone: Comment on above: Patient Position: Sitting; Cuff Location : Left Arm; Cuff Size: Standard 06-04-2022 09:15-0400 Heart rate 61 /min Casi Gordon MA [facility]; [facility] Work Phone: Comment on above: Pattern: Regular 06-04-2022 09:15-0400 Respiratory rate 17 /min Casi Gordon MA [facility]; [facility] Work Phone: Comment on above: Pattern: Unlabored 06-04-2022 09:15-0400 SaO2% (BldA) [Mass fraction] 95 % Casi Gordon MA [facility]; [facility] Work Phone: Comment on above: Room air 06-04-2022 09:15-0400 Systolic blood pressure 110 mm[Hg] Casi Gordon MA [facility]; [facility] Work Phone: Comment on above: Patient Position: Sitting; Cuff Location : Left Arm; Cuff Size: Standard 02-04-2020 07:45-0400 BMI (Body Mass Index) 30.68 kg/m2 Anurag Marks LPN [facility]; [facility] Work Phone: 02-04-2020 07:45-0400 Body Temperature 96.9 [degF] Anurag Marks LPN [facility]; [facility] Work Phone: Comment on above: Method: Temporal 02-04-2020 07:45-0400 Body weight 101.18 kg Anurag Marks LPN [facility]; [facility] Work Phone: 02-04-2020 07:45-0400 BP Diastolic 78 mm[Hg] Anurag Marks LPN [facility]; [facility] Work Phone: Comment on above: Patient Position: Sitting; Cuff Location : Left Arm; Cuff Size: Standard 02-04-2020 07:45-0400 BP Systolic 120 mm[Hg] Anurag Marks LPN [facility]; [facility] Work Phone: Comment on above: Patient Position: Sitting; Cuff Location : Left Arm; Cuff Size: Standard 02-04-2020 07:45-0400 BSA (Body Surface Area) 2.22 m2 Anurag Marks LPN [facility]; [facility] Work Phone: 02-04-2020 07:45-0400 Height 181.61 cm Anurag Marks LPN [facility]; [facility] Work Phone: 02-04-2020 07:45-0400 Pulse (Heart Rate) 90 /min Anurag Marks LPN Comprehensiv e [facility]; [facility] Work Phone: Comment on above: Pattern: Regular 02-04-2020 07:45-0400 Pulse Oximetry 96 % [place] [facility]; [facility] Work Phone: Comment on above: Room air 02-04-2020 07:45-0400 Respiratory Rate 16 /min Anurag Marks LPN [facility]; [facility] Work Phone: Comment on above: Pattern: Unlabored 02-04-2020 07:45-0400 SaO2% (BldA) [Mass fraction] 96 % Anurag Marks LPN [facility]; [facility] Work Phone: Comment on above: Room air 08-23-2019 08:43-0500 BMI (Body Mass Index) 30.46 kg/m2 Mariaa Pierson RN [facility]; [facility] Work Phone: 08-23-2019 08:43-0500 Body Temperature 97.2 [degF] Mariaa Pierson RN [facility]; [facility] Work Phone: Comment on above: Method: Temporal 08-23-2019 08:43-0500 Body weight 100.47 kg Mariaa Pierson RN [facility]; [facility] Work Phone: 08-23-2019 08:43-0500 BP Diastolic 88 mm[Hg] Mariaa Pierson RN [facility]; [facility] Work Phone: Comment on above: Patient Position: Sitting; Cuff Location : Left Arm; Cuff Size: Standard 08-23-2019 08:43-0500 BP Systolic 128 mm[Hg] Mariaa Pierson RN [facility]; [facility] Work Phone: Comment on above: Patient Position: Sitting; Cuff Location : Left Arm; Cuff Size: Standard 08-23-2019 08:43-0500 BSA (Body Surface Area) 2.21 m2 Mariaa Pierson RN [facility]; [facility] Work Phone: 08-23-2019 08:43-0500 Height 181.61 cm Mariaa Pierson RN [facility]; [facility] Work Phone: 08-23-2019 08:43-0500 Pulse (Heart Rate) 102 /min Mariaa Pierson RN [facility]; [facility] Work Phone: Comment on above: Pattern: Regular 08-23-2019 08:43-0500 Pulse Oximetry 92 % [place] [facility]; [facility] Work Phone: Comment on above: Room air 08-23-2019 08:43-0500 Respiratory Rate 20 /min Mariaa Pierson RN [facility]; [facility] Work Phone: Comment on above: Pattern: Unlabored 08-23-2019 08:43-0500 SaO2% (BldA) [Mass fraction] 92 % Mariaa Pierson RN [facility]; [facility] Work Phone: Comment on above: Room air 01-29-2019 09:35-0400 BMI (Body Mass Index) 30.46 kg/m2 Justine Osei [facility] Work Phone: 01-29-2019 09:35-0400 Body Temperature 97.1 [degF] Justine Osei [facility] Work Phone: Comment on above: Method: Temporal 01-29-2019 09:35-0400 Body weight 100.47 kg Justine Osei [email or web address] Internal Medicine Work Phone: 01-29-2019 09:35-0400 BP Diastolic 64 mm[Hg] Justine Osei [facility] [[email or web address]] Internal Medicine Work Phone: Comment on above: Patient Position: Sitting; Cuff Location : Left Arm; Cuff Size: Standard 01-29-2019 09:35-0400 BP Systolic 116 mm[Hg] Justine Osei [facility] [[email or web address]] Internal Medicine Work Phone: Comment on above: Patient Position: Sitting; Cuff Location : Left Arm; Cuff Size: Standard 01-29-2019 09:35-0400 BSA (Body Surface Area) 2.21 m2 Justine Osei [facility] [[email or web address]] Internal Medicine Work Phone: 01-29-2019 09:35-0400 Height 181.61 cm Justine Osei [facility] [[email or web address]] Internal Medicine Work Phone: 01-29-2019 09:35-0400 Pulse (Heart Rate) 96 /min Justine Osei [facility] [[email or web address]] Internal Medicine Work Phone: Comment on above: Pattern: Regular 01-29-2019 09:35-0400 Pulse Oximetry 90 % [place] [facility] [[email or web address]] Internal Medicine Work Phone: Comment on above: Room air 01-29-2019 09:35-0400 Respiratory Rate 17 /min Justine Osei [facility] [[email or web address]] Internal Medicine Work Phone: Comment on above: Pattern: Unlabored 01-29-2019 09:35-0400 SaO2% (BldA) [Mass fraction] 90 % Justine Osei [facility] [[email or web address]] Internal Medicine; [facility] Work Phone: Comment on above: Room air 01-29-2019 09:35-0400 Weight 100.47 kg [place] La [facility] [[email or web address]] Internal Medicine Work Phone: 04-10-2018 08:08-0400 BMI (Body Mass Index) 30.67 kg/m2 Cassandra Knottlear [facility] [[email or web address]] Internal Medicine Work Phone: 04-10-2018 08:08-0400 Body Temperature 96.7 [degF] Cassandra Rodgers [facility] [[email or web address]] Internal Medicine Work Phone: Comment on above: Method: Temporal 04-10-2018 08:08-0400 Body weight 101.15 kg Cassandra Rodgers [facility] [[email or web address]] Internal Medicine Work Phone: 04-10-2018 08:08-0400 BP Diastolic 80 mm[Hg] Cassandra Rodgers [facility] [[email or web address]] Internal Medicine Work Phone: Comment on above: Patient Position: Sitting; Cuff Location : Left Arm; Cuff Size: Standard 04-10-2018 08:08-0400 BP Systolic 132 mm[Hg] Cassandra Rodgers [facility] [[email or web address]] Internal Medicine Work Phone: Comment on above: Patient Position: Sitting; Cuff Location : Left Arm; Cuff Size: Standard 04-10-2018 08:08-0400 BSA (Body Surface Area) 2.22 m2 Cassandra Rodgers [facility] [[email or web address]] Internal Medicine Work Phone: 04-10-2018 08:08-0400 Height 181.61 cm Cassandra Rodgers [facility] [[email or web address]] Internal Medicine Work Phone: 04-10-2018 08:08-0400 Pulse (Heart Rate) 92 /min Cassandra Rodgers [facility] [[email or web address]] Internal Medicine Work Phone: Comment on above: Pattern: Regular 04-10-2018 08:08-0400 Pulse Oximetry 96 % [place] [facility] [[email or web address]] Internal Medicine Work Phone: Comment on above: Room air 04-10-2018 08:08-0400 Respiratory Rate 18 /min Cassandra Rodgers [facility] [[email or web address]] Internal Medicine Work Phone: Comment on above: Pattern: Unlabored 04-10-2018 08:08-0400 SaO2% (BldA) [Mass fraction] 96 % Cassandra Rodgers [email or web address]] Internal Medicine; [facility] Work Phone: Comment on above: Room air 04-10-2018 08:08-0400 Weight 101.15 kg [place] La [facility] [[email or web address]] Internal Medicine Work Phone: 09-05-2017 09:24-0500 BMI (Body Mass Index) 29.57 kg/m2 Anabel Werner WOOL HANKER [facility] Work Phone: 09-05-2017 09:24-0500 Body Temperature 97.6 [degF] Anabel Werner [employer] [facility] Work Phone: 09-05-2017 09:24-0500 Body weight 97.52 kg Anabel Werner [employer] [facility] Work Phone: 09-05-2017 09:24-0500 BP Diastolic 64 mm[Hg] Anabel Slarb [employer] [facility] Work Phone: Comment on above: Patient Position: Sitting; Cuff Location : Left Arm; Cuff Size: Standard 09-05-2017 09:24-0500 BP Systolic 108 mm[Hg] Anabel Kirbyrb [employer] [facility] Work Phone: Comment on above: Patient Position: Sitting; Cuff Location : Left Arm; Cuff Size: Standard 09-05-2017 09:24-0500 BSA (Body Surface Area) 2.19 m2 Anabel Kirbyrb [employer] [facility] Work Phone: 09-05-2017 09:24-0500 Height 181.61 cm Anabel Kirbyrb [employer] [facility] Work Phone: 09-05-2017 09:24-0500 Pulse (Heart Rate) 64 /min Anabel Werner LPN [facility] Work Phone: Comment on above: Pattern: Regular 09-05-2017 09:24-0500 Pulse Oximetry 97 % [place] [email or web address]] Internal Medicine Work Phone: Comment on above: Room air 09-05-2017 09:24-0500 Respiratory Rate 16 /min Anabel Orrrb [employer]ANKER [facility] Work Phone: Comment on above: Pattern: Unlabored 09-05-2017 09:24-0500 SaO2% (BldA) [Mass fraction] 97 % Anabel Kirbyrb [employer] [facility]; [facility] Work Phone: Comment on above: Room air 09-05-2017 09:24-0500 Weight 97.52 kg [place] La [email or web address]] Internal Medicine Work Phone: 06-30-2017 15:45-0500 BMI (Body Mass Index) 28.56 kg/m2 [facility] Work Phone: 06-30-2017 15:45-0500 BP Diastolic 90 mm[Hg] [facility] Work Phone: 06-30-2017 15:45-0500 BP Systolic 128 mm[Hg] [facility] Work Phone: 06-30-2017 15:45-0500 Height 187.32 cm [facility] Work Phone: 06-30-2017 15:45-0500 Pulse (Heart Rate) 60 /min [facility] Work Phone: 06-30-2017 15:45-0500 Respiratory Rate 18 /min [facility] Work Phone: 06-30-2017 15:45-0500 Weight 100.25 kg [facility] Work Phone: 06-30-2017 15:45-0500 Weight 100.24 kg [facility] Work Phone: 12-23-2016 11:04-0400 BMI (Body Mass Index) 28.56 kg/m2 Rolan Baez MD [facility] Work Phone: 12-23-2016 11:04-0400 BP Diastolic 72 mm[Hg] Rolan Baez MD [facility] Work Phone: 12-23-2016 11:04-0400 BP Systolic 108 mm[Hg] Rolan Baez MD [facility] Work Phone: 12-23-2016 11:04-0400 Height 187.32 cm Rolan Baez MD [facility] Work Phone: 12-23-2016 11:04-0400 Pulse (Heart Rate) 68 /min [facility] Work Phone: 12-23-2016 11:04-0400 Respiratory Rate 16 /min [facility] Work Phone: 12-23-2016 11:0400 Weight 100.25 kg Rolan Baez MD [facility] Work Phone: 12-06-2016 10:130400 BMI (Body Mass Index) 30.12 kg/m2 Anabel Slarb [employer] [facility] Work Phone: 12-06-2016 10:0400 Body Temperature 97.3 [degF] Anabel Slarb [employer] [facility] Work Phone: 12-06-2016 10:040 Body weight 99.34 kg Anabel Slarb [employer] [facility] Work Phone: 12-06-2016 10:130400 BP Diastolic 82 mm[Hg] Anabel Slarb [employer] [facility] Work Phone: Comment on above: Patient Position: Sitting; Cuff Location : Left Arm; Cuff Size: Standard 12-06-2016 10:0400 BP Systolic 134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 been no obvious episodes of CHF or pulmonary edema. There has been no ongoing palpitations or rapid heart rates. He denies any near-syncope or syncope. He has remained very active at home doing inside and outside work. He states he feels good doing so. He states when he becomes tired he stops and rests and continues his activities at a later time. He has not required additional cardiovascular diagnostic studies or interventions since his last visit. He does admit he has not had his lipid labs checked. 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 Accompanied by: Self Allergies No Known Allergies Allergy (Verified 03/20/21 11:10) Medications aspirin 81 mg tablet,delayed release 81 mg PO QDAY 01/02/18 [History Confirmed 03/20/21] atorvastatin 10 mg tablet 10 mg PO QDAY #90 tab 05/16/20 [Rx Confirmed 03/20/21] metoprolol succinate 25 mg tablet,extended release 24 hr 25 mg PO QDAY #90 tab 05/16/20 [Rx Confirmed 03/20/21] ramipril 10 mg capsule 10 mg PO QDAY #90 cap 05/16/20 [Rx Confirmed 03/20/21] PFS Medical History Aortic root dilatation 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 Social History Smoking Status: Former smoker ROS Const Const: Negative for fatigue, weakness, frequent falls, excessive sweating, weight gain or weight loss Eyes Eyes: Negative for transient loss of vision, blurry vision or change in vision ENT ENT: Negative for dizziness or balance problems Cardio Chest Pain: No Palpitations: No Edema: None Muscle aches with walking: None Resp Respiratory: Negative for SOB with activity or SOB at rest GI GI: Negative vomiting or vomiting blood/hematemesis : Negative for hematuria Musc Musc: Negative for muscle aches/ myalgia, muscle weakness, joint pain or balance problems Skin Skin: Negative non-healing lesions or rash Neuro Neuro: Negative for dizziness, lightheadedness, orthostatic symptoms, frequent falls, weakness or blurry vision Jairo Hematologic/Lymphatic: Negative for easy bleeding Endo Endo: Negative for fatigue or excessive sweating Psych Psych: Negative for anxiety or depression Allergy Allergy/Immunology: Negative for hives and Negative for rash Cardiology Exam Const Appearance: cooperative, healthy appearing, comfortable, no acute distress, well developed and well groomed Nutritional Appearance: overweight Orientation: alert, awake and oriented x3 Head Head: normal to inspection, normocephalic and atraumatic Ears: hearing grossly normal bilaterally Nose: external nose normal Face and Sinus: face symmetric Eyes Eyelids: eyelids normal Conjunctivae: conjunctivae normal Pupils: PERRL EOM: EOM intact bilaterally Neck Neck: normal visual inspection and full ROM Carotids: normal carotid upstroke Chest Chest inspection: normal inspection of the chest, symmetric chest movement and normal respiratory effort Auscultation: Bilateral: Clear to Auscultation Cardio Palpation: normal PMI Rate: regular rate Rhythm: regular rhythm Heart sounds: S1 normal, S2 normal and mid systolic click GI GI: normal to inspection, soft and bowel sounds present Neuro General: patient alert, patient awake, patient oriented x3, gait normal and moves all extremities Skin Skin: no rashes or lesions noted Extremities Pulses: Normal: Right Radial Pulse and Left Radial Pulse Lower Extremity Edema: None: Bilateral Psych Psychological: normal affect Assessment and Plan Assessment and Plan (1) Atherosclerotic heart disease of [place] coronary artery without angina pectoris: Status: Chronic Qualifiers: [place] vs. transplanted heart: [place] heart Qualified Code(s): I25.10 - Atherosclerotic heart disease of [place] coronary artery without angina pectoris Plan - Dr. Rolan Baez MD: At the present time he appears to doing well with no acute symptoms or adverse events. He will continue his current medical management. (2) Cardiomyopathy in disease classified elsewhere: Status: Chronic Plan - Dr. Rolan Baez MD: He has no symptoms of obvious CHF or pulmonary edema. His recent studies were reviewed. He will continue medical therapy and follow-up. 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 Rolan Baez MD: The. He will continue medical therapy and continue to be followed.He has had no obvious recurrence of his RV (4) Supraventricular tachycardia: Status: Chronic Plan - Dr. Rolan Baez MD: He has had no obvious recurrence of his SVT. Again he will continue his current medical therapy and follow-up. (5) Nonrheumatic mitral (valve) prolapse: Status: Chronic Plan - Dr. Rolan Baez MD: He has had no significant change based upon symptoms or examination. His most recent noninvasive studies were reviewed. He will continue to be followed with consideration for follow-up echocardiographic studies in the future. (6) Nonrheumatic mitral (valve) insufficiency: Status: Chronic Plan - Dr. Rolan Baez MD: He will continue evaluation care as noted above. (7) Patent foramen ovale: Status: Chronic Plan - Dr. Rolan Baez MD: His noninvasive studies were reviewed. He appears stable at this time with no acute symptoms or adverse events. He will continue to be followed. (8) Aortic root dilatation: Status: Chronic Mario - Dr. Rolan Baez MD: His previous studies were reviewed. At the moment he appears to be stable. He will continue medical therapy and follow-up. (9) Pure hypercholesterolemia: Status: Chronic Orders: Orders: Lipid Profile 1 Day Liver Profile 1 Day Plan - Dr. Rolan Baez MD: He will be having future fasting lipid labs. Plan Details Additional Comments: Thank you for allowing me to participate in the care of your patient. Please don't hesitate to call if any issues arise. This note was generated using a voice recognition system and there may be incorrect words, spelling or punctuation that were not noted when reviewing the office note prior to saving. Follow Up: 1 Year (with PFM) Coding Level of Care Code Off vis,est,level 3 Diagnoses Atherosclerotic heart disease of [place] coronary artery without angina pectoris I25.10 [place] vs. 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 Left ventricular systolic function is normal. The estimated ejection fraction is 60 %. The left atrium is mildly enlarged. Myxomatous mitral valve. Moderate mitral valve prolapse. Moderate (2+) mitral valve insufficiency. Trivial tricuspid valve insufficiency. Mild focal aortic valve thickening. Mildly dilated aortic root. Right ventricular systolic pressure estimated to be 21 mmHg. Echocardiogram: 02/23/2019 Interpretation Summary The study was technically difficult. Contrast injection was performed. Left ventricular systolic function is normal. The estimated ejection fraction is 60 %. The left atrium is mildly enlarged. Mild to moderate mitral valve prolapse. Moderate (2+) mitral valve insufficiency. Mild tricuspid valve insufficiency. Borderline to mildly dilated aortic root. Right ventricular systolic pressure estimated to be 23 mmHg. Diastolic function is indeterminate. Stress test: 12-07-2007 MYOCARDIAL PERFUSION SCAN TECHNIQUE The patient was injected with 14.3 mCi of Tc99m Cardiolite and subsequently rest SPECT Cardiolite nuclear imaging was obtained in the horizontal long, vertical long, and short axes views. The patient exercised on a Karlo protocol for 12 minutes achieving a peak heart rate of 160 beats per minute (98% predicted maximum heart rate) with a peak blood pressure of 190/90 rnmHg and a peak MET capacity of 13 METs. The patient was injected with 42.3 mCi of Tc99m Cardiolite and subsequently stress SPECT Cardiolite nuclear imaging was obtained in the horizontal long, vertical long, and short axes views. Gated Cardiolite study at peak stress was obtained. INTERPRETATION Rest SPECT Cardiolite nuclear imaging demonstrates diminished tracer uptake in portions of the basal inferior segments extending into the mid to distal inferior segments. Status post stress there is nota.tion of diminished tracer uptake in the basal inferior segments, however, with respect to the mid to distal inferior segments, the changes appear less prominent. There is notation of end???systolic thickening and brightening. The gated Cardiolite study demonstrates myocardial thickening and inward wall motion. The report LVEF is 49%. The aforementioned changes appear compatible with soft tissue/diaphragmatic attenuation which appears to be more prominent at rest as opposed to stress. There are no myocardial perfusion changes considered diagnostic for previous myocardial injury/infarction or stress???induced myocardial ischemia. IMPRESSION 1, Rest and stress SPECT Cardiolite nuclear imaging demonstrate myocardial perfusion changes suggestive of soft tissue/diaphragmatic attenuation which appears to be more prominent at rest as opposed to stress 2. There are no myocardial perfusion changes considered diagnostic for previous myocardial injury/infarction or stress???induced myocardial ischemia. 3. The gated Cardiolite study reports an LVEF of 49%. Cardiac catheterization: 06-05-2003 1. Borderline elevation of the left ventricular end-diastolic pressure status post angiographic dye load 2. Left ventricle: Normal left ventricular size with borderline low to mildly diminished LV systolic function with an estimated LVEF of 45 to 50% 3. Left main: Angiographically normal 4. Left anterior descending: Angiographically normal 5. LCx: Angiographically normal 6. RCA: Angiographically normal 7. Mitral valve: Prominent mitral valve scalloping with associated mitral valve prolapse without obvious mitral regurgitation Electrophysiology study: 07-19-2003: 1. Normal conduction intervals 2. Normal sinus node function 3. Normal AV node function 4. No evidence of accessory pathway conduction 5. No inducible supraventricular tachycardia with and without isoproterenol provocation Labs: LDL Cholesterol 97 mg/dL (0-130) HDL Cholesterol 51 mg/dL (40-) Triglycerides 93 mg/dL (-199) VLDL Cholesterol 19 mg/dL (5-40) Diagnostics: Electrocardiogram Echocardiogram Pulmonary: No Data to Display 03/20/21 1158 <Electronically signed by Rolan Baez MD> Date Rolan Baez MD Cosigner Signature: Date (if applicable) CC: INSERTER-C Elba La Elba La Start: 03-21-2020 End: 03-21-2020 Cardiology Visit Report Comments: See Note; NOTES: [facility] [address] [place] [address] OFFICE VISIT Date of Service: 03/21/20 MR#: [id number] Acct: [id number] Name: MAKAYLA OREILLY Rep #: [id number] : 1950 Provider: Dr. Rolan orozco MD Age/Sex: 70/M [place] [facility] [place] [place] [facility] Status: Signed HPI [facility] History of Present Illness Details: MAKAYLA OREILLY is a 70 year old white male who presents to the office today for a cardiovascular follow-up of his history of right ventricular out flow tract ventricular tachycardia, SVT, non ischemic cardiomyopathy, mitral valve prolapse/regurgitation, a history of PFO versus ASD, hyperlipidemia, and aortic root dilatation. From a cardiac standpoint he states he is doing well. He has remained active. He has no complaints of ongoing palpitations, near syncope/syncope, or chest discomfort concerning for angina pectoris, difficulty breathing, or evidence of overt CHF or pulmonary edema. 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 Accompanied by: Self Allergies No Known Allergies Allergy (Verified 03/21/20 15:30) Medications aspirin 81 mg tablet,delayed release 81 mg PO QDAY 01/02/18 [History Confirmed 03/21/20] atorvastatin 10 mg tablet 10 mg PO QDAY #90 tab 03/19/19 [Rx Confirmed 03/21/20] metoprolol succinate 25 mg tablet,extended release 24 hr 25 mg PO QDAY #90 tab 03/19/19 [Rx Confirmed 03/21/20] ramipril 10 mg capsule 10 mg PO QDAY #90 cap 03/19/19 [Rx Confirmed 03/21/20] [facility] Medical History Nonrheumatic mitral (valve) insufficiency (Chronic) Nonrheumatic mitral (valve) prolapse (Chronic) Pure hypercholesterolemia (Chronic) Patent foramen ovale (Chronic) Aortic root dilatation (Chronic) 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 Social History (Updated 03/21/20 @ 16:[address] Rolan Baez MD) Smoking Status: Former smoker ROS Const Const: Negative for fatigue, weakness, frequent falls, excessive sweating, weight gain or weight loss Eyes Eyes: Negative for transient loss of vision, blurry vision or change in vision ENT ENT: Negative for dizziness or balance problems Cardio Chest Pain: No Palpitations: No Edema: None Muscle aches with walking: None Resp Respiratory: Negative for SOB with activity or SOB at rest GI GI: Negative vomiting or vomiting blood/hematemesis : Negative for hematuria Musc Musc: Positive for muscle aches/ myalgia (bilat shoulders); negative for muscle weakness, joint pain or balance problems Skin Skin: Negative non-healing lesions or rash Neuro Neuro: Negative for dizziness, lightheadedness, orthostatic symptoms, frequent falls, weakness or blurry vision Jairo Hematologic/Lymphatic: Negative for easy bleeding Endo Endo: Negative for fatigue or excessive sweating Psych Psych: Negative for anxiety or depression Allergy Allergy/Immunology: Negative for hives, Negative for rash Cardiology Exam Const Appearance: cooperative, healthy appearing, comfortable, no acute distress, well developed and well groomed Nutritional Appearance: average body habitus Orientation: alert, awake and oriented x3 Head Head: normal to inspection, normocephalic and atraumatic Ears: hearing grossly normal bilaterally Nose: external nose normal Teeth and gingiva: fair dentition Eyes Eyelids: eyelids normal Conjunctivae: conjunctivae normal Pupils: PERRL EOM: EOM intact bilaterally Neck Neck: normal visual inspection, full ROM and no JVD Carotids: normal carotid upstroke; negative bruit Neck Mass: Negative Neck mass Chest Chest inspection: normal inspection of the chest, symmetric chest movement and normal respiratory effort Auscultation: Bilateral: Clear to Auscultation Cardio Palpation: normal PMI Rate: regular rate Rhythm: regular rhythm Heart sounds: S1 normal, S2 normal and mid systolic click; negative rub or murmur GI GI: normal to inspection, soft and bowel sounds present; negative tender Neuro General: alert, awake, oriented x3 and moves all extremities Skin Skin: no rashes or lesions noted Extremities Pulses: Normal: Right Posterior Tibial Pulse, Left Posterior Tibial Pulse, Right Radial Pulse, Left Radial Pulse Lower Extremity Edema: None: Bilateral Psych Psychological: normal affect Assessment Plan 1. Nonrheumatic mitral (valve) prolapse I34.1 Plan At the present time he is without significant change based on history or examination. He will continue his current medical management. It was not felt that he required additional cardiac diagnostic evaluation at this time. Over time his echocardiogram will be used to follow his mitral valve prolapse/insufficiency. 2. Nonrheumatic mitral valve insufficiency I34.0 Plan He will continue evaluation care as noted above peer 3. 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 He appears to be stable at this time. He will continue medical therapy 4. SVT (supraventricular tachycardia) I47.1 Plan He has had no obvious symptomatic events suspicious for recurrent supraventricular dysrhythmias. He will continue his current medical management and follow-up. 5. Dilated cardiomyopathy I42.0 Plan His most recent evaluation demonstrated his overall LV systolic function remains preserved at this time. He will continue to be followed by history, exam, and echocardiogram as deemed appropriate. 6. Atherosclerosis of [place] coronary artery of [place] heart without angina pectoris I25.10 Plan His previous noninvasive and invasive studies are noted. He has not had any angiographically significant appearing CAD. He will continue risk factor evaluation and care. 7. Pure hypercholesterolemia E78.00 Plan He will be asked to have future fasting lipid hepatic profile. Orders Orders: Lipid Profile Today Liver Profile Today Plan Detail Additional Comments He will be scheduled for an outpatient visit approximately 1 year unless needed sooner. Thank you for allowing me to participate in the care of your patient. Please don't hesitate to call if any issues arise. This note was generated using a voice recognition system and there may be incorrect words, spelling or punctuation that were not noted when reviewing the office note prior to saving. 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 transplanted heart: [place] heart Pure hypercholesterolemia E78.00 Supplemental Info Supplemental Information Transthoracic echocardiogram: 07-13-16 Interpretation Summary The study was technically difficult. Left ventricular systolic function is normal. The estimated ejection fraction is 60 %. The left atrium is mildly enlarged. Myxomatous mitral valve. Moderate mitral valve prolapse. Moderate (2+) mitral valve insufficiency. Trivial tricuspid valve insufficiency. Mild focal aortic valve thickening. Mildly dilated aortic root. Right ventricular systolic pressure estimated to be 21 mmHg. Echocardiogram: 02/23/2019 Interpretation Summary The study was technically difficult. Contrast injection was performed. Left ventricular systolic function is normal. The estimated ejection fraction is 60 %. The left atrium is mildly enlarged. Mild to moderate mitral valve prolapse. Moderate (2+) mitral valve insufficiency. Mild tricuspid valve insufficiency. Borderline to mildly dilated aortic root. Right ventricular systolic pressure estimated to be 23 mmHg. Diastolic function is indeterminate. Stress test: 12-07-2007 MYOCARDIAL PERFUSION SCAN TECHNIQUE The patient was injected with 14.3 mCi of Tc99m Cardiolite and subsequently rest SPECT Cardiolite nuclear imaging was obtained in the horizontal long, vertical long, and short axes views. The patient exercised on a Karlo protocol for 12 minutes achieving a peak heart rate of 160 beats per minute (98% predicted maximum heart rate) with a peak blood pressure of 190/90 rnmHg and a peak MET capacity of 13 METs. The patient was injected with 42.3 mCi of Tc99m Cardiolite and subsequently stress SPECT Cardiolite nuclear imaging was obtained in the horizontal long, vertical long, and short axes views. Gated Cardiolite study at peak stress was obtained. INTERPRETATION Rest SPECT Cardiolite nuclear imaging demonstrates diminished tracer uptake in portions of the basal inferior segments extending into the mid to distal inferior segments. Status post stress there is nota.tion of diminished tracer uptake in the basal inferior segments, however, with respect to the mid to distal inferior segments, the changes appear less prominent. There is notation of end???systolic thickening and brightening. The gated Cardiolite study demonstrates myocardial thickening and inward wall motion. The report LVEF is 49%. The aforementioned changes appear compatible with soft tissue/diaphragmatic attenuation which appears to be more prominent at rest as opposed to stress. There are no myocardial perfusion changes considered diagnostic for previous myocardial injury/infarction or stress???induced myocardial ischemia. IMPRESSION 1, Rest and stress SPECT Cardiolite nuclear imaging demonstrate myocardial perfusion changes suggestive of soft tissue/diaphragmatic attenuation which appears to be more prominent at rest as opposed to stress 2. There are no myocardial perfusion changes considered diagnostic for previous myocardial injury/infarction or stress???induced myocardial ischemia. 3. The gated Cardiolite study reports an LVEF of 49%. Cardiac catheterization: 06-05-2003 1. Borderline elevation of the left ventricular end-diastolic pressure status post angiographic dye load 2. Left ventricle: Normal left ventricular size with borderline low to mildly diminished LV systolic function with an estimated LVEF of 45 to 50% 3. Left main: Angiographically normal 4. Left anterior descending: Angiographically normal 5. LCx: Angiographically normal 6. RCA: Angiographically normal 7. Mitral valve: Prominent mitral valve scalloping with associated mitral valve prolapse without obvious mitral regurgitation Electrophysiology study: 07-19-2003: 1. Normal conduction intervals 2. Normal sinus node function 3. Normal AV node function 4. No evidence of accessory pathway conduction 5. No inducible supraventricular tachycardia with and without isoproterenol provocation Labs LDL Cholesterol 78 mg/dL (0-130) 11/03/18 HDL Cholesterol 48 mg/dL (40-) 11/03/18 Triglycerides 81 mg/dL (-199) 11/03/18 VLDL Cholesterol 16 mg/dL (5-40) 11/03/18 Diagnostics Electrocardiogram 01/05/18 Echocardiogram 02/23/19 03/21/20 1611 <Electronically signed by Rolan Baez MD> Date Rolan Baez MD Cosigner Signature: Date (if applicable) CC: INSERTER-Delmy Elba La Start: 02-23-2019 End: 02-23-2019 Echo, Complete w/ Contrast Comments: See Note; NOTES: [facility] [address] [place] [address] Echo Complete W/ Contrast 02/23/19 9366 MR#: [id number] Acct: [id number] Name: MAKAYLA OREILLY Rep #: [id number] : 1950 69 From: Rolan Baez MD Attending Dr: Rolan Baez MD Status: REG CLI Ordering Dr: Rolan Baez MD Date: 02/23/19 Location: [facility] Sex: M C Admitted: Reason For Study: MVP Procedure This was a 2D Doppler, Color Flow transthoracic echocardiogram. The study was technically difficult. Contrast injection was performed. Exam performed in department. Left Ventricle Normal LV size. Left ventricular systolic function is normal. The estimated ejection fraction is 60 %. Diastolic function is indeterminate. No regional wall motion abnormalities noted. Right Ventricle Normal RV size. Normal systolic function. Atria The left atrium is mildly enlarged. Normal right atrium. No doppler evidence for ASD. Mitral Valve There is no mitral annular calcification. Mild to moderate mitral valve prolapse. Moderate (2+) mitral valve insufficiency. Tricuspid Valve Normal tricuspid valve. Mild tricuspid valve insufficiency. Right ventricular systolic pressure estimated to be 23 mmHg. Aortic Valve Trisinus/trileaflet aortic valve. Normal aortic valve. Pulmonic Valve The pulmonic valve is not well visualized. Great Vessels Borderline to mildly dilated aortic root. Pericardium/Pleural No pericardial effusion. Medication 22 gauge I.V. with prn adaptor inserted into right arm. Diluted definity 4ml given slow IV push to enhance endocardial definition. MMode/2D Measurements AND Calculations LVIDd: 4.3 cm IVSd: 1.0 cm Ao root diam: 3.8 cm LVIDs: 2.7 cm LVPWd: 0.85 cm RVDd: 3.6 cm FS: 37.0 % LAV(MOD-bp): 84.1 ml EDV(MOD-sp4): 150.7 ml EDV(MOD-sp2): 96.8 ml LAV(MOD-bp) Indexed: 37.2 ml/m2 ESV(MOD-sp4): 50.0 ml EF(MOD-sp2): 54.1 % LAV(MOD-sp2): 108.6 ml EF(MOD-sp4): 66.8 % LAV(MOD-sp4): 65.3 ml SV(MOD-sp4): 100.6 ml SV(MOD-sp2): 52.3 ml LA A4 area: 21.7 cm2 LA dimension(2D): 4.3 cm RA A4 area: 16.3 cm2 Time Measurements MV dec time: 0.24 sec Doppler Measurements AND Calculations MV E max jesika: 44.2 cm/sec Lat Peak E' Jesika: 8.3 cm/sec Med Peak E' Jesika: 4.7 cm/sec MV A max jesika: 43.3 cm/sec E/E' lat: 5.4 E/E' med: 9.4 MV E/A: 1.0 Ao V2 max: 99.3 cm/sec LV V1 max: 82.9 cm/sec TR max jesika: 223.5 cm/sec Ao max P.9 mmHg LV V1 max P.8 mmHg TR max P.1 mmHg Interpretation Summary The study was technically difficult. Contrast injection was performed. Left ventricular systolic function is normal. The estimated ejection fraction is 60 %. The left atrium is mildly enlarged. Mild to moderate mitral valve prolapse. Moderate (2+) mitral valve insufficiency. Mild tricuspid valve insufficiency. Borderline to mildly dilated aortic root. Right ventricular systolic pressure estimated to be 23 mmHg. Diastolic function is indeterminate. Ordering Physician: Rolan Baez Referring Physician: ELBA LA Performed By: Shelbie Crocker, SRAVAN, RVT 02/23/19 1626 Date Rolan Baez MD CC: CARLOS La; Rolan Baez MD Date Dictated: 02/23/19 1456 Date Transcribed: 02/23/191625 Bill Adjuster: Signed Elba La Start: 01-26-2019 End: 01-26-2019 Cardiology Visit Report Comments: See Note; NOTES: [facility] [address] [place] [address] OFFICE VISIT Date of Service: 01/26/19 MR#: [id number] Acct: [id number] Name: MAKAYLA OREILLY Rep #: [id number] : 1950 Provider: Rolan Baez MD Age/Sex: 69/M [place] [facility] [place] [place] [facility] Status: Signed [facility] History of Present Illness Details: MAKAYLA OREILLY, is a 69 M who presents to the office today for a cardiovascular follow-up. 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 From a cardiac standpoint he states he is doing well. He has remained active. He has no complaints of ongoing palpitations, near syncope/syncope, forms of chest discomfort, difficulty breathing, or evidence of overt CHF or pulmonary edema. His lipids were evaluated in October of this year. His total cholesterol was 142 with an LDL of 78 and an HDL of 48. His triglycerides were 81. His AST and ALT were within normal limits. He states he has had a colonoscopy performed. He states he was "clean". He was told he did no longer need GI follow-up or repeat colonoscopies in the future based on his age and good results. 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 Accompanied by: Self Allergies No Known Allergies Allergy (Verified 01/26/19 08:35) Medications atorvastatin 10 mg tablet 10 mg PO QDAY #90 tab 10/25/17 [Rx Confirmed 01/26/19] aspirin 81 mg tablet,delayed release 81 mg PO QDAY 01/02/18 [History Confirmed 01/26/19] metoprolol succinate ER 25 mg tablet,extended release 24 hr 25 mg PO QDAY 01/02/18 [History Confirmed 01/26/19] ramipril 10 mg capsule 10 mg PO QDAY #90 cap 12/07/18 [Rx Confirmed 01/26/19] [facility] Medical History Nonrheumatic mitral (valve) insufficiency (Chronic) Nonrheumatic mitral (valve) prolapse (Chronic) Pure hypercholesterolemia (Chronic) Patent foramen ovale (Chronic) Aortic root dilatation (Chronic) 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 Social History Smoking Status: Former smoker ROS Const Const: Negative for fatigue, weakness, frequent falls, excessive sweating, weight gain or weight loss Eyes Eyes: Negative for transient loss of vision, blurry vision or change in vision ENT ENT: Negative for dizziness or balance problems Cardio Chest Pain: No Palpitations: No Edema: None Muscle aches with walking: None Resp Respiratory: Negative for SOB with activity or SOB at rest GI GI: Negative vomiting or vomiting blood/hematemesis : Negative for hematuria Musc Musc: Negative for muscle aches/ myalgia, muscle weakness, joint pain or balance problems Skin Skin: Negative non-healing lesions or rash Neuro Neuro: Negative for dizziness, lightheadedness, orthostatic symptoms, frequent falls, weakness or blurry vision Jairo Hematologic/Lymphatic: Negative for easy bleeding Endo Endo: Negative for fatigue or excessive sweating Psych Psych: Negative for anxiety or depression Allergy Allergy/Immunology: Negative for hives, Negative for rash Cardiology Exam Const Appearance: cooperative, healthy appearing, comfortable, no acute distress, well developed and well groomed Nutritional Appearance: average body habitus Orientation: alert, awake and oriented x3 Head Head: normal to inspection, normocephalic and atraumatic Ears: hearing grossly normal bilaterally Nose: external nose normal Mouth: moist mucous membranes Teeth and gingiva: fair dentition Eyes Eyelids: eyelids normal Conjunctivae: conjunctivae normal Pupils: PERRL EOM: EOM intact bilaterally Neck Neck: normal visual inspection, full ROM and no JVD Carotids: normal carotid upstroke; negative bruit Neck Mass: Negative Neck mass Chest Chest inspection: normal inspection of the chest, symmetric chest movement and normal respiratory effort Auscultation: Bilateral: Clear to Auscultation Cardio Palpation: normal PMI Rate: regular rate Rhythm: regular rhythm Heart sounds: S1 normal, S2 normal and mid systolic click; negative rub or murmur GI GI: normal to inspection, soft and bowel sounds present; negative tender Neuro General: alert, awake, oriented x3 and moves all extremities Skin Skin: no rashes or lesions noted Extremities Pulses: Normal: Right Posterior Tibial Pulse, Left Posterior Tibial Pulse, Right Radial Pulse, Left Radial Pulse Lower Extremity Edema: None: Bilateral Psych Psychological: normal affect Assessment AND Plan 1. 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 He will continue to be monitored. He will continue his current medical management. 2. Dilated cardiomyopathy I42.0 Plan He has no symptoms of overt CHF or pulmonary edema. He will continue medical therapy and follow-up. 3. Nonrheumatic mitral (valve) prolapse I34.1 Plan He does have a history of moderate mitral valve prolapse/moderate mitral valve insufficiency. It is been approximately 3 years since his last transthoracic echocardiogram. He will have a follow-up study performed to monitor his valvular anatomy and physiology as well as his overall left ventricular size, wall motion, and systolic function. 4. Pure hypercholesterolemia E78.00 Plan His lipid labs were reviewed. They appear to be under good control. He will continue medical management and follow-up. 5. Aortic root dilatation I77.810 Plan He does not recall if he has had any further evaluation of his aortic root since his last outpatient visit. Her graph he will have the echocardiogram which will help to reassess his aortic root size. Pending upon the findings he may or may not need additional diagnostic studies. Plan Detail Other Orders Orders: Additional Comments Otherwise he will be scheduled for an outpatient visit approximately 1 year unless needed sooner. Thank you for allowing me to participate in the care of your patient. Please don't hesitate to call if any issues arise. This note was generated using a voice recognition system and there may be incorrect words, spelling or punctuation that were not noted when reviewing the office note prior to saving. 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 Left ventricular systolic function is normal. The estimated ejection fraction is 60 %. The left atrium is mildly enlarged. Myxomatous mitral valve. Moderate mitral valve prolapse. Moderate (2+) mitral valve insufficiency. Trivial tricuspid valve insufficiency. Mild focal aortic valve thickening. Mildly dilated aortic root. Right ventricular systolic pressure estimated to be 21 mmHg. Stress test: 12-07-2007 MYOCARDIAL PERFUSION SCAN TECHNIQUE The patient was injected with 14.3 mCi of Tc99m Cardiolite and subsequently rest SPECT Cardiolite nuclear imaging was obtained in the horizontal long, vertical long, and short axes views. The patient exercised on a Karlo protocol for 12 minutes achieving a peak heart rate of 160 beats per minute (98% predicted maximum heart rate) with a peak blood pressure of 190/90 rnmHg and a peak MET capacity of 13 METs. The patient was injected with 42.3 mCi of Tc99m Cardiolite and subsequently stress SPECT Cardiolite nuclear imaging was obtained in the horizontal long, vertical long, and short axes views. Gated Cardiolite study at peak stress was obtained. INTERPRETATION Rest SPECT Cardiolite nuclear imaging demonstrates diminished tracer uptake in portions of the basal inferior segments extending into the mid to distal inferior segments. Status post stress there is nota.tion of diminished tracer uptake in the basal inferior segments, however, with respect to the mid to distal inferior segments, the changes appear less prominent. There is notation of end systolic thickening and brightening. The gated Cardiolite study demonstrates myocardial thickening and inward wall motion. The report LVEF is 49%. The aforementioned changes appear compatible with soft tissue/diaphragmatic attenuation which appears to be more prominent at rest as opposed to stress. There are no myocardial perfusion changes considered diagnostic for previous myocardial injury/infarction or stress induced myocardial ischemia. IMPRESSION 1, Rest and stress SPECT Cardiolite nuclear imaging demonstrate myocardial perfusion changes suggestive of soft tissue/diaphragmatic attenuation which appears to be more prominent at rest as opposed to stress 2. There are no myocardial perfusion changes considered diagnostic for previous myocardial injury/infarction or stress induced myocardial ischemia. 3. The gated Cardiolite study reports an LVEF of 49%. Cardiac catheterization: 06-05-2003 1. Borderline elevation of the left ventricular end-diastolic pressure status post angiographic dye load 2. Left ventricle: Normal left ventricular size with borderline low to mildly diminished LV systolic function with an estimated LVEF of 45 to 50% 3. Left main: Angiographically normal 4. Left anterior descending: Angiographically normal 5. LCx: Angiographically normal 6. RCA: Angiographically normal 7. Mitral valve: Prominent mitral valve scalloping with associated mitral valve prolapse without obvious mitral regurgitation Electrophysiology study: 07-19-2003: 1. Normal conduction intervals 2. Normal sinus node function 3. Normal AV node function 4. No evidence of accessory pathway conduction 5. No inducible supraventricular tachycardia with and without isoproterenol provocation Labs LDL Cholesterol 78 mg/dL (0-130) 11/03/18 HDL Cholesterol 48 mg/dL (40-) 11/03/18 Triglycerides 81 mg/dL (-199) 11/03/18 VLDL Cholesterol 16 mg/dL (5-40) 11/03/18 Diagnostics Electrocardiogram 01/05/18 01/26/19 0922 <Electronically signed by Rolan Baez MD> Date Rolan Baez MD Cosigner Signature: Date (if applicable) CC: CARLOS [place]ba La Start: 01-05-2018 End: 01-05-2018 Cardiology Visit Report Comments: See Note; NOTES: [facility] [address] [place] [address] OFFICE VISIT Date of Service: 01/05/18 MR#: [id number] Acct: [id number] Name: MAKAYLA OREILLY Rep #: [id number] : 1950 Provider: Laurie Valdivia Age/Sex: 67/M [place] [facility] [place] Status: Signed HPI HPI Details: MAKAYLA OREILLY, is a 67 M who presents to the office today for a cardiovascular follow-up. 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 From a cardiac standpoint, patient is doing well. He does not have any chest discomfort/heaviness/tightnes s. His exercise tolerance is stable for his age. He does not have any worsening symptoms of shortness of breath. He denies any PND. He does not have any orthopnea. He does not have any symptoms of congestive heart failure. He does not have any palpitations that he is aware of. He does not have any lightheadedness or dizziness. He does not have any near-syncope or syncope. He does not have any lower extremity edema. He does not have any symptoms of claudication. 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 Accompanied by: none Is patient in pain?: No Allergies No Known Allergies Allergy (Verified 01/05/18 12:59) Medications ramipril 10 mg capsule 10 mg PO QDAY #90 cap 10/03/17 [Rx Confirmed 01/05/18] atorvastatin 10 mg tablet 10 mg PO QDAY #90 tab 10/25/17 [Rx Confirmed 01/05/18] aspirin 81 mg tablet,delayed release 81 mg PO QDAY 01/02/18 [History Confirmed 01/05/18] metoprolol succinate ER 25 mg tablet,extended release 24 hr 25 mg PO QDAY 01/02/18 [History Confirmed 01/05/18] Ejection fraction %: 60 to 64 [facility] Medical History Patent foramen ovale (Chronic) Aortic root dilatation (Chronic) 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 Social History Smoking Status: Former smoker ROS Const Const: Negative for fatigue, weakness, night sweats, excessive sweating, frequent falls, headache(s) or daytime sleepiness Eyes Eyes: Negative for loss of peripheral vision, transient loss of vision, blind spots, double vision or blurry vision ENT ENT: Positive for dizziness (occasional fuzziness); negative for headache(s), balance problems, Nosebleed/epistaxis, tongue swelling or lip swelling Cardio Chest Pain: No Palpitations: No Edema: None Muscle aches with walking: None Resp Respiratory: Negative for SOB at rest, SOB orthopnea\\SOB lying down, Cough, paroxysmal nocturnal dyspnea or SOB with activity GI GI: Negative nausea, vomiting, heartburn, black,tarry stools or bright, red blood in stools : Negative for hematuria Musc Musc: Negative for balance problems, muscle aches/ myalgia, muscle weakness or joint pain Skin Skin: Negative non-healing lesions, unusual bruising or rash Neuro Neuro: Positive for dizziness (occasional fuzziness); negative for weakness, frequent falls, headache(s), double vision, lightheadedness, orthostatic symptoms, blurry vision or lack of coordination Jairo Hematologic/Lymphatic: Negative for easy bruising or easy bleeding Endo Endo: Negative for fatigue, excessive sweating, cold intolerance, heat intolerance, increased thirst/drinking or hair loss Psych Psych: Negative for anxiety or depression Allergy Allergy/Immunology: Negative for throat swelling, Negative for tongue swelling, Negative for hives, Negative for rash, Negative for lip swelling Cardiology Exam Const Appearance: cooperative, no acute distress and well developed Orientation: alert, awake and oriented x3 Head Head: normocephalic and atraumatic Mouth: moist mucous membranes Eyes General: appearance normal, both eyes and all related structures Conjunctivae: conjunctivae normal Pupils: PERRL EOM: EOM intact bilaterally Neck Neck: normal visual inspection, no lymphadenopathy and no JVD Carotids: Negative bruit Neck Mass: Negative Neck mass Chest Chest inspection: normal inspection of the chest and symmetric chest movement Auscultation: Bilateral: Clear to Auscultation Cardio Palpation: normal PMI Rate: regular rate Rhythm: regular rhythm Heart sounds: S1 normal, S2 normal and mid systolic click; negative rub or murmur GI GI: normal to inspection, soft, no hepatosplenomegaly and bowel sounds present; negative tender Neuro General: alert, awake, oriented x3, CN's II-XI intact bilaterally and moves all extremities Extremities Pulses: Normal: Right Posterior Tibial Pulse, Left Posterior Tibial Pulse, Right Radial Pulse, Left Radial Pulse Lower Extremity Edema: None: Bilateral Psych Psychological: normal affect Supplemental Info Echocardiogram in 2016 demonstrated Left ventricular systolic function is normal. The estimated ejection fraction is 60 %. The left atrium is mildly enlarged. Myxomatous mitral valve. Moderate mitral valve prolapse. Moderate (2+) mitral valve insufficiency. Trivial tricuspid valve insufficiency. Mild focal aortic valve thickening. Mildly dilated aortic root. Right ventricular systolic pressure estimated to be 21 mmHg. Assessment AND Plan 1. 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 We will continue to monitor. 2. Supraventricular tachycardia I47.1 Plan Patient has not had any symptomatic recurrence. We will continue to monitor. Orders Orders: 3. Cardiomyopathy in disease classified elsewhere I43 Plan Patient does not have any symptoms of congestive heart failure. We will continue to monitor by history, exam and echocardiograms as deemed appropriate. 4. Pure hypercholesterolemia E78.00; E78.0 Plan Recent lipid profile demonstrates total cholesterol 146, HDL 46, LDL 83. Will continue current medications. They are adequately controlled. 5. Mitral valve disorder I05.9 Plan Stable, patient does have mitral valve prolapse/regurgitation. We will continue to monitor by history, exam and echocardiograms as deemed appropriate. 6. Patent foramen ovale Q21.1 Plan Stable, will continue to monitor. 7. Aortic root dilatation I77.810 Plan Stable, patient's blood pressure is adequately controlled. Will continue to monitor with periodic echocardiograms. Plan Detail Other Orders Orders: Additional Comments Thank you for allowing us to participate in patient's plan of care, if you have any questions please do not hesitate to call. This note was generated using a voice recognition system and there may be incorrect words, spelling or punctuation errors that were not noted when reviewing the office note prior to saving. 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 Comments: See Note; NOTES: [facility] [address] [place] [address] 12 Lead EKG [place] [facility] 01/05/18 1254 MR#: [id number] Acct: [id number] Name: MAKAYLA OREILLY Rep #: [id number] : 1950 67 From: Laurie GARCIA Attending Dr: Laurie Valdivia Status: DEP AMB Ordering Dr: Laurie Valdivia Date: 01/05/18 [place]: [facility] [place] Sex: M C Admitted: [facility]12 Lead EKG [place] [facility] Sinus Rhythm -Nonspecific QRS widening. BORDERLINE 01/05/181651 <Electronically signed by Laurie GARCIA> Date Laurie GARCIA CC: Elba La INSERTER Date Dictated: 01/05/18 1254 Date Transcribed: 01/05/18 125 Bill Adjuster: SHARA Signed Elba La Start: 06-30-2017 End: 06-30-2017 SHARA Baez MD Start: 06-20-2017 End: 06-20-2017 *Hepatic Function Panel Rolan Baez MD Start: 06-20-2017 End: 06-20-2017 Lipid 1996 panel - Serum or Plasma Rolan Baez MD Start: 12-23-2016 End: 12-23-2016 Follow Up Appt 6 months Drew Drew OPTICAL DESIGN ENGINEER -C Start: 12-23-2016 End: 12-23-2016 PFM Drew Drew OPTICAL DESIGN ENGINEER-C Start: 12-13-2016 End: 12-16-2016 *Hepatic Function Panel Rolan Baez MD Start: 12-13-2016 End: 12-16-2016 Lipid 1996 panel - Serum or Plasma Rolan Baez MD Start: 07-13-2016 End: 07-13-2016 Echocardiogram Complete Comments: See Note; NOTES: [facility] [address] [place] [address] Echo Complete 07/13/16 1258 MR#: [id number] Acct: [id number] Name: MAKAYLA OREILLY Rep #: [id number] : 1950 66 From: Rolan Baez MD Attending Dr: Rolan Baez MD Status: REG CLI Ordering Dr: Rolan Baez MD Date: 07/13/16 Location: [facility] Sex: M C Admitted: Reason For Study: ASHD Procedure This was a 2D Doppler, Color Flow transthoracic echocardiogram. The exam was of fair technical quality due to limited acoustic window. The study was technically difficult. Exam performed in department. Left Ventricle Normal LV size. Left ventricular systolic function is normal. The estimated ejection fraction is 60 %. No regional wall motion abnormalities noted. Right Ventricle Normal RV size. Normal systolic function. Atria The left atrium is mildly enlarged. Normal right atrium. No doppler evidence for ASD. Mitral Valve There is no mitral annular calcification. Myxomatous mitral valve. Moderate mitral valve prolapse. Moderate (2+) mitral valve insufficiency. Tricuspid Valve Normal tricuspid valve. Trivial tricuspid valve insufficiency. Right ventricular systolic pressure estimated to be 21 mmHg. Aortic Valve Trisinus/trileaflet aortic valve. Mild focal aortic valve thickening. Pulmonic Valve The pulmonic valve is not well visualized. Great Vessels Mildly dilated aortic root. Pericardium/Pleural No pericardial effusion. MMode/2D Measurements & Calculations LVIDd: 4.0 cm IVSd: 1.2 cm LVOT diam: 2.1 cm LVIDs: 3.1 cm LVPWd: 1.2 cm LVOT area: 3.5 cm2 RVDd: 3.9 cm FS: 22.1 % Ao root diam: 4.3 cm LAV(MOD-bp): 80.0 ml LA A4 area: 21.6 cm2 LA dimension: 4.2 cm LAV(MOD-bp) Indexed: 35.5 ml/m2 LAV(MOD-sp2): 98.5 ml LAV(MOD-sp4): 63.4 ml RA A4 area: 20.0 cm2 Time Measurements MV dec time: 0.22 sec Doppler Measurements & Calculations MV E max jesika: 50.5 cm/sec Lat Peak E' Jesika: 7.3 cm/sec Med Peak E' Jesika: 4.9 cm/sec MV A max jesika: 64.4 cm/sec E/E' lat: 6.9 E/E' med: 10.2 MV E/A: 0.78 MV P1/2t max jesika: 51.2 cm/sec Ao V2 max: 107.9 cm/sec LV V1 max: 79.2 cm/sec MV P1/2t: 65.6 msec Ao max P.7 mmHg LV V1 max P.5 mmHg MV dec slope: 228.9 cm/sec2 MARILYN(V,D): 2.6 cm2 MVA(P1/2t): 3.4 cm2 MR max jesika: 499.3 cm/sec TR max jesika: 214.8 cm/sec MR max P.7 mmHg TR max P.4 mmHg Interpretation Summary The study was technically difficult. Left ventricular systolic function is normal. The estimated ejection fraction is 60 %. The left atrium is mildly enlarged. Myxomatous mitral valve. Moderate mitral valve prolapse. Moderate (2+) mitral valve insufficiency. Trivial tricuspid valve insufficiency. Mild focal aortic valve thickening. Mildly dilated aortic root. Right ventricular systolic pressure estimated to be 21 mmHg. Ordering Physician: Rolan Baez Performed By: Sarah Nair RDCS 07/13/16 4174 Date Rolan Baez MD CC: Norman Smyth; Rolan Baez MD Date Dictated: 07/13/16 1258 Date Transcribed: 07/13/16 4773 Bill Adjuster: Palmer La Start: 06-28-2016 End: 07-13-2016 Echocardiography Rolan Baez MD Start: 06-28-2016 End: 06-28-2016 Follow Up Appt 6 months Rolan Baez MD Start: 06-28-2016 End: 06-28-2016 MMM Rolan Baez MD Start: 06-09-2016 End: 06-18-2016 *Hepatic Function Panel Rolan Baez MD Start: 06-09-2016 End: 06-18-2016 Lipid 1996 panel - Serum or Plasma Rolan Baez MD Start: 01-20-2016 End: 01-20-2016 Ecg routine ecg w/least 12 lds w/i&r Laurie Valdivia PA-C Work Phone: Start: 01-20-2016 End: 01-20-2016 Follow Up Appt 6 months Laurie Valdivia PA-C Work Phone: Start: 01-20-2016 End: 01-20-2016 PFM Laurie Valdivia PA-C Work Phone: Start: 12-08-2015 End: 12-09-2015 Lipid 1996 panel - Serum or Plasma Rolan Baez MD Start: 06-30-2015 End: 06-30-2015 Follow Up Appt 6 months Rolan Baez MD Start: 06-30-2015 End: 06-30-2015 MM Rolan Baez MD Start: 05-29-2015 End: 06-06-2015 *Hepatic Function Panel Rolan Baez MD Start: 05-29-2015 End: 06-06-2015 Lipid 1996 panel - Serum or Plasma Rolan Baez MD Start: 12-25-2014 End: 12-26-2014 Documentation of current medications Laurie Valdivia PA-C Work Phone: Start: 12-25-2014 End: 12-25-2014 Follow Up Appt 6 months Laurie Valdivia PA-C Work Phone: Start: 12-25-2014 End: 12-25-2014 PFM Laurie Valdivia PA-C Work Phone: Start: 11-15-2014 End: 11-27-2014 *Hepatic Function Panel Rolan Baez MD Start: 11-15-2014 End: 11-27-2014 Lipid 1996 panel - Serum or Plasma Rolan Baez MD Start: 08-23-2014 End: 08-23-2014 Aorta Comments: See Note; NOTES: [facility] [address] [place] [id number] Ultrasound Report MR#: [id number] Acct: [id number] Name: MAKAYLA OREILLY Rep #: [id number] : 1950 M 64 From: Juan Carlos Herrera MD PCP: Joyce Abdi DO Status: REG CLI Study: Aorta Date of Exam: 08/23/14 Exam# [id number] Ordering Dr: Joyce Abdi DO PROCEDURES: ULTRASOUND AORTA REASON FOR EXAM: Male, 64 years old. Screening for abdominal aortic aneurysm. TECHNIQUE: Ultrasound evaluation of the aorta was performed with real-time and static ngo-scale imaging. COMPARISON: None. FINDINGS: There is atherosclerotic plaque formation of the abdominal aorta. Aorta measures: Proximal 3.0 cm. Middle 1.9 cm. Distal 1.6 cm. Aorta measure transversely: Proximal 2.3 cm. Middle 1.8 cm. Distal 1.5 cm. Right iliac artery measures: 1.3 cm. Right iliac artery measure transversely: 0.7 cm. Left iliac artery measures: 1.0 cm. Left iliac artery measure transversely: 0.9 cm. There is no demonstrated aneurysm.. IMPRESSION: There is no evidence of abdominal aortic aneurysm. There is evidence of distal atherosclerotic plaques. Electronically Signed: Juan Carlos Herrera MD at 11:16 EST Tel [phone], Service support [phone], CC: Joyce Abdi DO Bill Adjuster: Signed Joyce Abdi Work Phone: Start: 06-28-2014 End: 12-17-2014 Follow Up Appt 6 months Rolan Baez MD Start: 06-28-2014 End: 12-17-2014 MMM Rolan Baez MD Start: 05-15-2014 End: 05-17-2014 *Hepatic Function Panel Rolan Baez MD Start: 05-15-2014 End: 05-17-2014 Lipid 1996 panel - Serum or Plasma Rolan Baez MD Start: 01-01-2014 End: 01-01-2014 Ecg routine ecg w/least 12 lds w/i&r Laurie Valdivia PA-C Work Phone: Start: 01-01-2014 End: 01-01-2014 Follow Up Appt 6 months Laurie Valdivia PA-C Work Phone: Start: 01-01-2014 End: 01-01-2014 PFM Laurie Valdivia PA-C Work Phone: Start: 11-13-2013 End: 12-05-2013 *Hepatic Function Panel Rolan Baez MD Start: 11-13-2013 End: 12-05-2013 Lipid 1996 panel - Serum or Plasma Rolan Baez MD Start: 07-05-2013 End: 07-05-2013 Follow Up Appt 6 months Rolan Baez MD Start: 07-05-2013 End: 07-05-2013 MMDomingo Baez MD Start: 05-15-2013 End: 05-30-2013 *Hepatic Function Panel Laurie Valdivia PA-C Work Phone: Start: 05-15-2013 End: 05-30-2013 Lipid 1996 panel - Serum or Plasma Laurie Valdivia PA-C Work Phone: Start: 12-21-2012 End: 12-21-2012 Ecg routine ecg w/least 12 lds w/i&r Laurie Valdivia PA-C Work Phone: Start: 12-21-2012 End: 01-01-2014 Echocardiography Laurie Valdivia PA-C Work Phone: Start: 12-21-2012 End: 12-21-2012 Follow Up Appt 6 months Laurie Valdivia PA-C Work Phone: Start: 12-21-2012 End: 12-21-2012 PFM Laurie Valdivia PA-C Work Phone: Start: 11-09-2012 End: 12-14-2012 *BMP Rolan Baez MD Start: 06-15-2012 End: 11-22-2012 *Hepatic Function Panel Rolan Baez MD Start: 06-15-2012 End: 06-15-2012 Follow Up Appt 6 months Rolan Baez MD Start: 06-15-2012 End: 11-22-2012 Lipid 1996 panel - Serum or Plasma Rolan Baez MD Start: 03-07-2012 End: 04-07-2012 *Hepatic Function Panel Rolan Baez MD Start: 03-07-2012 End: 04-07-2012 Lipid 1996 panel - Serum or Plasma Rolan Baez MD Start: 12-30-2011 End: 12-30-2011 Ecg routine ecg w/least 12 lds w/i&r Rolan Baez MD Start: 12-30-2011 End: 12-14-2012 Follow Up Appt 6 months Rolan Baez MD Vasectomy Justine Sea Vasectomy Anurag Marks Vasectomy Casi Gordon MA Plan of Treatment Date Care Activity Detail Author Start: 06-08-2022 Provider Instructions for Treatment Follow up if no improvement or if symptoms worsen [facility] Work Phone: Start: 06-04-2022 Procedure Education Eprescribed prescriptions (G8553) [facility]; [facility] Work Phone: Start: 06-04-2022 [place]oo influenza Inhouse FLU A+B DIRECT AG, (RAPID) ([id number]) [facility]; [facility] Work Phone: Start: 09-10-2020 Hepatitis c antibody HEPATITIS C ANTIBODY (81377) [facility]; [facility] Work Phone: Start: 02-04-2020 Procedure Education Eprescribed prescriptions (G8553) [facility]; [facility] Work Phone: Start: 02-04-2020 Provider Instructions for Treatment [facility] Work Phone: Start: 02-04-2020 Assay of prostate specific antigen total PSA (PROSTATE SPECIFIC ANTIGEN) (V76.44) [facility]; [facility] Work Phone: Comment on above: 04-11-20 Start: 08-23-2019 Procedure Education Eprescribed prescriptions (G8553) [facility]; [facility] Work Phone: Start: 08-23-2019 Provider Instructions for Treatment [facility]; [facility] Work Phone: Start: 04-10-2019 Protein mass conc PSA (PROSTATE SPECIFIC ANTIGEN) (V76.44) [facility] Work Phone: Start: 01-29-2019 Procedure Education Eprescribed prescriptions (G8553) [facility] Work Phone: Start: 01-29-2019 Provider Instructions for Treatment [facility] Work Phone: Start: 04-10-2018 Procedure Education Eprescribed prescriptions (G8553) [facility] Work Phone: Start: 04-10-2018 Provider Instructions for Treatment [facility] Work Phone: Start: 01-05-2018 End: 01-05-2018 Appointment Appointment [facility] Work Phone: Start: 12-19-2017 End: 06-24-2017 *Hepatic Function Panel *Hepatic Function Panel [facility] Work Phone: Start: 12-19-2017 End: 06-24-2017 Lipid panel [AGGREGATE] *Lipid Profile CC PCP [facility] Work Phone: Start: 09-05-2017 Patient Education Flu (Influenza) *: influenza [facility] Work Phone: Start: 09-05-2017 Procedure Education Eprescribed prescriptions (G8553) [facility] Work Phone: Start: 09-05-2017 Provider Instructions for Treatment Follow up if no improvement or if symptoms worsen [facility] Work Phone: Start: 06-30-2017 End: 06-30-2017 Appointment Appointment [facility] Work Phone: Start: 06-30-2017 End: 06-30-2017 *Hepatic Function Panel *Hepatic Function Panel [facility] Work Phone: Start: 06-30-2017 End: 06-30-2017 Lipid panel [AGGREGATE] *Lipid Profile CC PCP [facility] Work Phone: Start: 06-30-2017 End: 06-30-2017 MMM MMM [facility] Work Phone: Start: 06-20-2017 End: 06-20-2017 *Hepatic Function Panel *Hepatic Function Panel [facility] Work Phone: Start: 06-20-2017 End: 06-20-2017 Lipid panel [AGGREGATE] *Lipid Profile CC PCP [facility] Work Phone: Start: 12-23-2016 End: 12-23-2016 Follow Up Appt 6 months Follow Up Appt 6 months [facility] Work Phone: Start: 12-23-2016 End: 12-23-2016 PFM PFM [facility] Work Phone: Start: 12-13-2016 End: 12-16-2016 *Hepatic Function Panel *Hepatic Function Panel [facility] Work Phone: Start: 12-13-2016 End: 12-16-2016 Lipid panel [AGGREGATE] *Lipid Profile CC PCP [facility] Work Phone: Start: 12-06-2016 Procedure Education Eprescribed prescriptions (G8553) [facility] Work Phone: Start: 12-06-2016 Provider Instructions for Treatment Follow up in 1 year or as needed [facility] Work Phone: Start: 12-06-2016 Urinalysis qual/semiquant except immunoassays URINALYSIS (05762) [facility] Work Phone: Start: 12-06-2016 Blood count complete auto&auto difrntl wbc CBC, Platelets & Auto Diff (43623) [facility] Work Phone: Start: 12-06-2016 Assay of thyroid stimulating hormone tsh TSH ([id number]) [facility]; [facility] Work Phone: Start: 12-06-2016 Thyrotropin Qn TSH ([id number]) [facility] Work Phone: Start: 12-06-2016 Assay of prostate specific antigen total PSA (PROSTATE SPECIFIC ANTIGEN) (V76.44) [facility] Work Phone: Start: 12-06-2016 Protein mass conc PSA (PROSTATE SPECIFIC ANTIGEN) (V76.44) [facility] Work Phone: Start: 12-06-2016 Comprehensive metabolic panel Metabolic Panel, Comprehensive ([id number]) [facility] Work Phone: Start: 06-28-2016 End: 06-28-2016 Echocardiography Echocardiogram (complete) [facility] Work Phone: Start: 06-28-2016 End: 06-28-2016 Follow Up Appt 6 months Follow Up Appt 6 months [facility] Work Phone: Start: 06-28-2016 End: 06-28-2016 MMM MMM [facility] Work Phone: Start: 06-09-2016 End: 06-18-2016 *Hepatic Function Panel *Hepatic Function Panel [facility] Work Phone: Start: 06-09-2016 End: 06-18-2016 Lipid panel [AGGREGATE] *Lipid Profile CC PCP [facility] Work Phone: Start: 01-20-2016 End: 01-20-2016 Ecg routine ecg w/least 12 lds w/i&r EKG (In office) [facility] Work Phone: Start: 01-20-2016 End: 01-20-2016 Follow Up Appt 6 months Follow Up Appt 6 months [facility] Work Phone: Start: 01-20-2016 End: 01-20-2016 PFM PFM [facility] Work Phone: Start: 12-08-2015 End: 12-09-2015 Lipid panel [AGGREGATE] *Lipid Profile CC PCP [facility] Work Phone: Start: 10-03-2015 Assay of prostate specific antigen total PSA (PROSTATE SPECIFIC ANTIGEN) (V76.44) [facility] Work Phone: Start: 10-03-2015 Protein mass conc PSA (PROSTATE SPECIFIC ANTIGEN) (V76.44) [facility] Work Phone: Start: 10-03-2015 Assay of thyroid stimulating hormone tsh TSH ([id number]) [facility]; [facility] Work Phone: Start: 10-03-2015 Thyrotropin Qn TSH ([id number]) [facility] Work Phone: Start: 10-03-2015 Blood count complete auto&auto difrntl wbc CBC W/AUTO DIFF WBC ([id number]) [facility] Work Phone: Start: 10-03-2015 Lipid panel LIPID PANEL ([id number]) [facility] Work Phone: Start: 10-03-2015 Comprehensive metabolic panel METABOLIC PANEL, COMPREHENSIVE ([id number]) [facility] Work Phone: Start: 06-30-2015 End: 06-30-2015 Follow Up Appt 6 months Follow Up Appt 6 months [facility] Work Phone: Start: 06-30-2015 End: 06-30-2015 MMM MMM [facility] Work Phone: Start: 05-29-2015 End: 06-06-2015 *Hepatic Function Panel *Hepatic Function Panel [facility] Work Phone: Start: 05-29-2015 End: 06-06-2015 Lipid panel [AGGREGATE] *Lipid Profile CC PCP [facility] Work Phone: Start: 12-25-2014 End: 12-25-2014 Follow Up Appt 6 months Follow Up Appt 6 months [facility] Work Phone: Start: 12-25-2014 End: 12-25-2014 PFM PFM [facility] Work Phone: Start: 11-15-2014 End: 11-27-2014 *Hepatic Function Panel *Hepatic Function Panel [facility] Work Phone: Start: 11-15-2014 End: 11-27-2014 Lipid panel [AGGREGATE] *Lipid Profile CC PCP [facility] Work Phone: Start: 08-21-2014 Provider Instructions for Treatment [facility] Work Phone: Start: 07-29-2014 Patient Education [facility] Work Phone: Start: 06-28-2014 End: 12-17-2014 Follow Up Appt 6 months Follow Up Appt 6 months [facility] Work Phone: Start: 06-28-2014 End: 12-17-2014 MMM MMM [facility] Work Phone: Start: 05-15-2014 End: 05-17-2014 *Hepatic Function Panel *Hepatic Function Panel [facility] Work Phone: Start: 05-15-2014 End: 05-17-2014 Lipid panel [AGGREGATE] *Lipid Profile CC PCP [facility] Work Phone: Start: 01-01-2014 End: 01-01-2014 Ecg routine ecg w/least 12 lds w/i&r EKG (In office) [facility] Work Phone: Start: 01-01-2014 End: 01-01-2014 Follow Up Appt 6 months Follow Up Appt 6 months [facility] Work Phone: Start: 01-01-2014 End: 01-01-2014 PFM PFM [facility] Work Phone: Start: 11-13-2013 End: 12-05-2013 *Hepatic Function Panel *Hepatic Function Panel [facility] Work Phone: Start: 11-13-2013 End: 12-05-2013 Lipid panel [AGGREGATE] *Lipid Profile CC PCP [facility] Work Phone: Start: 07-05-2013 End: 07-05-2013 Follow Up Appt 6 months Follow Up Appt 6 months [facility] Work Phone: Start: 07-05-2013 End: 07-05-2013 MMM MMM [facility] Work Phone: Start: 05-15-2013 End: 05-30-2013 *Hepatic Function Panel *Hepatic Function Panel [facility] Work Phone: Start: 05-15-2013 End: 05-30-2013 Lipid panel [AGGREGATE] *Lipid Profile [facility] Work Phone: Start: 12-21-2012 End: 12-21-2012 Ecg routine ecg w/least 12 lds w/i&r EKG (In office) [facility] Work Phone: Start: 12-21-2012 End: 12-21-2012 Echocardiography Echocardiogram (complete) [facility] Work Phone: Start: 12-21-2012 End: 12-21-2012 Follow Up Appt 6 months Follow Up Appt 6 months [facility] Work Phone: Start: 12-21-2012 End: 12-21-2012 PFM PFM [facility] Work Phone: Start: 11-09-2012 End: 12-14-2012 *BMP *BMP [facility] Work Phone: Start: 06-15-2012 End: 11-22-2012 *Hepatic Function Panel *Hepatic Function Panel [facility] Work Phone: Start: 06-15-2012 End: 06-15-2012 Follow Up Appt 6 months Follow Up Appt 6 months [facility] Work Phone: Start: 06-15-2012 End: 11-22-2012 Lipid panel [AGGREGATE] *Lipid Profile [facility] Work Phone: Start: 03-07-2012 End: 04-07-2012 *Hepatic Function Panel *Hepatic Function Panel [facility] Work Phone: Start: 03-07-2012 End: 04-07-2012 Lipid panel [AGGREGATE] *Lipid Profile [facility] Work Phone: Start: 12-30-2011 End: 12-30-2011 Ecg routine ecg w/least 12 lds w/i&r EKG (In office) [facility] Work Phone: Start: 12-30-2011 End: 12-14-2012 Follow Up Appt 6 months Follow Up Appt 6 months [facility] Work Phone: Patient Education [facility] Work Phone: [facility] Work Phone: [facility] Work Phone: Payers Date Payer Category Payer Self-pay [id number] 2021 Unknown [id number] 2014 Unknown [id number] 2009 Unknown [id number] 1950 Unknown [id number] Unknown Unknown [id number] Unknown [id number] Unknown [id number] Social History Date Type Detail Facility Caffeine Use Former smoker [facility] Work Phone: Comment on above: retired from [email or web address]- - no children Tobacco use: Former smoker. [facility] Work Phone: Comment on above: Quit 40 years ago Tobacco use: Tobacco use: [facility] Work Phone: Comment on above: Quit 40 years ago Start: 04-07-2023 Tobacco smoking status [facility] Unknown if ever smoked [facility] Start: 1950 Sex Assigned At Male [facility] Start: 05-31-2024 Tobacco smoking status [facility] Ex-smoker (finding) [facility] Start: 12-03-2024 Sex Male (finding) [facility] Evaluation note Note Date & Type Note Facility Evaluation note Diagnosis Onset Date Aortic root dilatation chron ic 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 Nonrheumatic mitral (valve) prolapse chronic Patent foramen ovale chronic Pure hypercholesterolemia ch ronic 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 Supraventricular tachycardia chronic [facility] Work Phone: Evaluation note Note Date & Type Note Facility Evaluation note No assessment information availa ble [facility] Work Phone: Instructions Note Date & Type Note Facility Instructions Name Patient Instructions Indication:Nonsmoker Start:04-Jun-20 Instruction Type:Provider Instructions for Treatment How to Access Health Information Online using Patient Portal and 3rd [employer] Apps Indication:Nonsmoker Start:04-Jun-20 Instruction Type:Patient Education How to access health information online Indication:Nonsmoker Start:04-Feb-20 Instruction Type:Patient Education How to access health information online - Detail Indication:Nonsmoker Start:04-Feb-20 Instruction Type:Patient Education Patient Instructions Indication:Screening for prostate cancer Start:04-Feb-20 Instruction Type:Provider Instructions for Treatment How to access health information online Indication:Nonsmoker Start: Instruction Type:Patient Education How to access health information online - Detail Indication:Nonsmoker Start: Instruction Type:Patient Education Patient Instructions Indication:Nonsmoker Start: Instruction Type:Provider Instructions for Treatment How to access health information online Indication:Nonsmoker Start:30-Jan-20 Instruction Type:Patient Education How to access health information online - Detail Indication:Nonsmoker Start:30-Jan-20 Instruction Type:Patient Education Patient Instructions Indication:Nonsmoker Start:30-Jan-20 Instruction Type:Provider Instructions for Treatment How to access health information online Indication:Nonsmoker Start:10-Apr-20 Instruction Type:Patient Education How to access health information online - Detail Indication:Nonsmoker Start:10-Apr-20 Instruction Type:Patient Education Patient Instructions Indication:Nonsmoker Start:10-Apr-20 Instruction Type:Provider Instructions for Treatment How to access health information online Indication:BMI 29.0-29.9,adult Start:05-Sep-19 Instruction Type:Patient Education How to access health information online - Detail Indication:BMI 29.0-29.9,adult Start:05-Sep-19 Instruction Type:Patient Education Patient Instructions Indication:Type B influenza Start:05-Sep-19 Instruction Type:Provider Instructions for Treatment How to access health information online Indication:Other hyperlipidemia Start:07-Dec-19 Instruction Type:Patient Education How to access health information online - Detail Indication:Other hyperlipidemia Start:07-Dec-19 Instruction Type:Patient Education Patient Instructions Indication:Other hyperlipidemia Start:07-Dec-19 Instruction Type:Provider Instructions for Treatment How to access health information online Indication:Other hyperlipidemia Start:03-Oct-19 Instruction Type:Patient Education How to access health information online - Detail Indication:Other hyperlipidemia Start:03-Oct-19 Instruction Type:Patient Education Patient Instructions Indication:Other hyperlipidemia Start:19-Feb-20 16 Instruction Type:Provider Instructions for Treatment Patient Instructions Indication:Encounter for Medicare annual wellness exam Start: 5 Instruction Type:Provider Instructions for Treatment Patient Instructions Indication:Other hyperlipidemia Start:29-Jul-20 14 Instruction Type:Provider Instructions for Treatment [facility]; [facility] Work Phone: Reason for referral (narrative) Note Date & Type Note Facility Reason for referral (narrative) No reason for referral information available [facility] Work Phone: Family History No Family History Records FoundUnknown Family Member Name Dates Details Family Members In General Comments:- adopted incomplet e hisxtory Status:Active Unknown Family Member Name Dates Details Family Members In General Comments:- adopted incomplet e hisxtory Status:Active Unknown Family Member Name Dates Details Family Members In General Comments:- adopted incomplet e hisxtory Status:Active Unknown Family Member Name Dates Details Family Members In General Comments:- adopted incomplet e hisxtory Status:Active Instructions Name Dates Details How to access health informa tion online Indication:Nonsmoker Start:29-Jan-2019 Instruction Type:Patient Education How to access health informa tion online - Detail Indication:Nonsmoker Start:29-Jan-2019 Instruction Type:Patient Education Patient Instructions Indication:Nonsmoker Start:29-Jan-2019 Instruction Type:Provider Instructions for Treatment How to access health informa tion online Indication:Nonsmoker Start:10-Apr-2018 Instruction Type:Patient Education How to access health informa tion online - Detail Indication:Nonsmoker Start:10-Apr-2018 Instruction Type:Patient Education Patient Instructions Indication:Nonsmoker Start:10-Apr-2018 Instruction Type:Provider Instructions for Treatment How to access health informa tion online Indication:BMI 29.0-29.9,adult Start:05-Sep-2017 Instruction Type:Patient Education How to access health informa tion online - Detail Indication:BMI 29.0-29.9,adult Start:05-Sep-2017 Instruction Type:Patient Education Patient Instructions Indication:Type B influenza Start:05-Sep-2017 Instruction Type:Provider Instructions for Treatment How to access health informa tion online Indication:Other hyperlipidemia Start:06-Dec-2016 Instruction Type:Patient Education How to access health informa tion online - Detail Indication:Other hyperlipidemia Start:06-Dec-2016 Instruction Type:Patient Education Patient Instructions Indication:Other hyperlipidemia Start:06-Dec-2016 Instruction Type:Provider Instructions for Treatment How to access health informa tion online Indication:Other hyperlipidemia Start:03-Oct-2015 Instruction Type:Patient Education How to access health informa tion online - Detail Indication:Other hyperlipidemia Start:03-Oct-2015 Instruction Type:Patient Education Patient Instructions Indication:Other hyperlipidemia Start:03-Oct-2015 Instruction Type:Provider Instructions for Treatment Patient Instructions Indication:Encounter for Medicare annual wellness exam Start:21-Aug-2014 Instruction Type:Provider Instructions for Treatment Patient Instructions Indication:Other hyperlipidemia Start:29-Jul-2014 Instruction Type:Provider Instructions for Treatment Name Dates Details How to access health informa tion online Indication:Nonsmoker Start:29-Jan-2019 Instruction Type:Patient Education How to access health informa tion online - Detail Indication:Nonsmoker Start:29-Jan-2019 Instruction Type:Patient Education Patient Instructions Indication:Nonsmoker Start:29-Jan-2019 Instruction Type:Provider Instructions for Treatment How to access health informa tion online Indication:Nonsmoker Start:10-Apr-2018 Instruction Type:Patient Education How to access health informa tion online - Detail Indication:Nonsmoker Start:10-Apr-2018 Instruction Type:Patient Education Patient Instructions Indication:Nonsmoker Start:10-Apr-2018 Instruction Type:Provider Instructions for Treatment How to access health informa tion online Indication:BMI 29.0-29.9,adult Start:05-Sep-2017 Instruction Type:Patient Education How to access health informa tion online - Detail Indication:BMI 29.0-29.9,adult Start:05-Sep-2017 Instruction Type:Patient Education Patient Instructions Indication:Type B influenza Start:05-Sep-2017 Instruction Type:Provider Instructions for Treatment How to access health informa tion online Indication:Other hyperlipidemia Start:06-Dec-2016 Instruction Type:Patient Education How to access health informa tion online - Detail Indication:Other hyperlipidemia Start:06-Dec-2016 Instruction Type:Patient Education Patient Instructions Indication:Other hyperlipidemia Start:06-Dec-2016 Instruction Type:Provider Instructions for Treatment How to access health informa tion online Indication:Other hyperlipidemia Start:03-Oct-2015 Instruction Type:Patient Education How to access health informa tion online - Detail Indication:Other hyperlipidemia Start:03-Oct-2015 Instruction Type:Patient Education Patient Instructions Indication:Other hyperlipidemia Start:03-Oct-2015 Instruction Type:Provider Instructions for Treatment Patient Instructions Indication:Encounter for Medicare annual wellness exam Start:21-Aug-2014 Instruction Type:Provider Instructions for Treatment Patient Instructions Indication:Other hyperlipidemia Start:29-Jul-2014 Instruction Type:Provider Instructions for Treatment Name Dates Details How to access health informa tion online Indication:Nonsmoker Start:04-Feb-2020 Instruction Type:Patient Education How to access health informa tion online - Detail Indication:Nonsmoker Start:04-Feb-2020 Instruction Type:Patient Education Patient Instructions Indication:Screening for prostate cancer Start:04-Feb-2020 Instruction Type:Provider Instructions for Treatment How to access health informa tion online Indication:Nonsmoker Start:23-Aug-2019 Instruction Type:Patient Education How to access health informa tion online - Detail Indication:Nonsmoker Start:23-Aug-2019 Instruction Type:Patient Education Patient Instructions Indication:Nonsmoker Start:23-Aug-2019 Instruction Type:Provider Instructions for Treatment How to access health informa tion online Indication:Nonsmoker Start:29-Jan-2019 Instruction Type:Patient Education How to access health informa tion online - Detail Indication:Nonsmoker Start:29-Jan-2019 Instruction Type:Patient Education Patient Instructions Indication:Nonsmoker Start:29-Jan-2019 Instruction Type:Provider Instructions for Treatment How to access health informa tion online Indication:Nonsmoker Start:10-Apr-2018 Instruction Type:Patient Education How to access health informa tion online - Detail Indication:Nonsmoker Start:10-Apr-2018 Instruction Type:Patient Education Patient Instructions Indication:Nonsmoker Start:10-Apr-2018 Instruction Type:Provider Instructions for Treatment How to access health informa tion online Indication:BMI 29.0-29.9,adult Start:05-Sep-2017 Instruction Type:Patient Education How to access health informa tion online - Detail Indication:BMI 29.0-29.9,adult Start:05-Sep-2017 Instruction Type:Patient Education Patient Instructions Indication:Type B influenza Start:05-Sep-2017 Instruction Type:Provider Instructions for Treatment How to access health informa tion online Indication:Other hyperlipidemia Start:06-Dec-2016 Instruction Type:Patient Education How to access health informa tion online - Detail Indication:Other hyperlipidemia Start:06-Dec-2016 Instruction Type:Patient Education Patient Instructions Indication:Other hyperlipidemia Start:06-Dec-2016 Instruction Type:Provider Instructions for Treatment How to access health informa tion online Indication:Other hyperlipidemia Start:03-Oct-2015 Instruction Type:Patient Education How to access health informa tion online - Detail Indication:Other hyperlipidemia Start:03-Oct-2015 Instruction Type:Patient Education Patient Instructions Indication:Other hyperlipidemia Start:03-Oct-2015 Instruction Type:Provider Instructions for Treatment Patient Instructions Indication:Encounter for Medicare annual wellness exam Start:21-Aug-2014 Instruction Type:Provider Instructions for Treatment Patient Instructions Indication:Other hyperlipidemia Start:29-Jul-2014 Instruction Type:Provider Instructions for Treatment Summary Purpose Advance Directives No Advanced Directives Records FoundNo Advanced Directives Records Found Chief Complaint and Reason for Visit Chief Complaint 1 Y FU PREV PFM PT Reason for Visit Aortic root dilatati on 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 Nonrheumatic mitral (valve) prolapse Patent foramen ovale Pure hypercholesterolemia 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) Supraventricular tachycardia Chief Complaint 1 Y FU PREV PFM PT Atherosclerotic heart disease of [place] coronary a Reason for Visit Aortic root dilatati on 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 Nonrheumatic mitral (valve) prolapse Patent foramen ovale Pure hypercholesterolemia 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) Supraventricular tachycardia Chief Complaint Admit Date INT LABS November 28, 2024 9:3 3am Additional Source Comments (unrecognized sect ion and content) No Status Records FoundNo Status Records Found INFORMATION SOURCE (unrecogn ized section and content) DATE CREATED AUTHOR 06/08/2022 [facility] DATE CREATED AUTHOR AUTHOR'S ORGANIZ ATION [facility] Care Teams (unrecognized sec tion and content) Team Status: Active Member Role Status Dates Elba La NP, NP-Delmy Family Provider Active HAMIDA Mock Primary Care Provider Active Team Status: Inactive Member Role Status Dates Laurie GARCIA, PA Attending Provider Active HAMIDA Mock Primary Care Provider, Referring Provider Active Team Status: Inactive Member Role Status Dates HAMIDA Mock Primary Care Provider Active Laurie GARCIA PA Attending Provider Active Team Status: Active Member Role Status Dates Carmen Heriberto , INSERTER-C Primary Care Provider Active Dr. Robin Hagen MD Attending Provider Active Team Status: Inactive Member Role Status Dates Carmen Louis NP-C Primary Care Provider Active Laurie GARCIA, PA Attending Provider, Referr ing Provider Active Team Status: Inactive Member Role Status Dates Carmen Louis NP-C Primary Care Provider Active Start: November 28, 2024 End: November 28, 2024 Makayla Mobley INSERTER, INSERTER-C Attending Provider Active S tart: November 28, 2024 End: November 28, 2024 Makayla Mobley NP, INSERTER-C Referring Provider Active S tart: November 28, 2024 End: November 28, 2024 Goals (unrecognized section and content) Goals may be documented in a n alternate sectionGoals may be documented in an alternate sectionGoals may be documented in an alternate section FOR RECORDS PERTAINING TO PATIENTS WHO ARE OR HAVE BEEN ENROLLED IN A CHEMICAL DEPENDENCY/SUBSTANCEABUSE PROGRAM, SOME INFORMATION MAY BE OMITTED. This clinical summary was aggregated from multiple sources. Caution should be exercised in using it in the provision of clinical care. This summary normalizes information from multiple sources, and as a consequence, information in this document may materially change the coding, format and clinical context of patient data. In addition, data may be omitted in some cases. CLINICAL DECISIONS SHOULD BE BASED ON THE PRIMARY CLINICAL RECORDS. [employer] provides no warranty or guarantee of the accuracy or completeness of information in this document.
[2025-05-20 10:35] LABS: AST(SGOT) 28 U/L (<=37); Alanine Aminotransfer ALT/SGPT 16 U/L (<=46); Albumin, Serum 4.3 g/dL (3.4-4.8); Alkaline Phosphatase 92 U/L (40-129); Bilirubin, Direct 0.23 mg/dL (0.00-0.30); Globulin 2.7 g/dL (2.2-4.2)
[2025-05-20 11:23] LABS: Cholesterol 146 mg/dL (<=200); Low Density Lipoprotein Calc. 80 mg/dL; Triglycerides 89 mg/dL; Very Low Density Lipoprotein 18 mg/dL (5-40); cholesterol:hdl ratio screen 3.02
== END | disposition home or self-care (01) ==
LOC: MTLAB 08:44
PROVIDERS: PCP Nurse Practitioner Family; Referring Provider Nurse Practitioner Family; Visit Provider Nurse Practitioner Family
DX: E78.00 Pure hypercholesterolemia, unspecified (principal)
CPT/HCPCS: 36415; 80061; 80076